=== PATIENT | female | born 1955 | race Caucasian/White ===

== ENCOUNTER 2016-05-12 21:27 | Inpatient (IN) ==
[2016-05-12 22:20] LABS: Prothrombin Time 10.8 Seconds (9.4-12.1)
[2016-05-12 22:23] LABS: Activated Partial Thrombo Time 29.5 Seconds (26.0-36.0)
[2016-05-12 22:27] LABS: Albumin 2.8 g/dL (3.5-5.0); Bilirubin,Direct 0.2 mg/dL (0.0-0.5); Bilirubin,Indirect 0.2 mg/dL (0.0-1.2); Bilirubin,Total 0.4 mg/dL (0.2-1.2); Calcium 10.5 mg/dL (8.6-10.8); Globulin 2.9 g/dL (2.4-3.5); Magnesium 2.1 mg/dL (1.6-2.6); Phosphorous 3.9 mg/dL (2.3-4.7); Potassium 5.9 mEq/L (3.5-4.5); Total Protein 5.7 g/dL (6.0-8.3)
[2016-05-12 22:30] LABS: Bilirubin,Urine Negative (Negative); Blood,Urine Moderate (Negative); Clarity,Urine Clear (Clear); Color,Urine Yellow (Yellow); Glucose,Urine (UA) Normal (Normal); Ketones,Urine Negative (Negative); Leukocyte Esterase,Urine Negative (Negative); Nitrite,Urine Negative (Negative); Protein,Urine Negative (Neg-Trace); Specific Gravity,Urine 1.018 (1.010-1.025); Urobilinogen,Urine Normal (Normal)
[2016-05-12 22:31] LABS: Bacteria,Urine None Seen per hpf (None-Few); Hyaline Casts,Urine Few per lpf (None-Few); Squamous Epithelial Cell,Urine Many per lpf (None-Few); WBC,Urine 0-3 per hpf (0-3)
[2016-05-12 22:37] LABS: Basophils % 0.2 %; Immature Granulocytes % 0.5 % (0-4)
[2016-05-12 22:39] LABS: Hemoglobin 8.7 g/dL (11.5-15.4); Immature Platelets 21.5 % (1.1-6.1); Lymphocytes # 0.3 K/mcL (0.6-4.6); Mean Corpuscular HGB Conc 32.2 g/dL (31.6-35.5); Mean Corpuscular Volume 99.3 fL (83.0-100.0); Mean Platelet Volume 13.3 fL (9.4-12.4); Monocytes # 0.1 K/mcL (0.0-1.3); Monocytes % 2.2 %; Nucleated Red Blood Cells 0.5 /100 WBC (0); Red Blood Count 2.72 M/mcL (3.82-4.97); Red Cell Distribution Width 15.4 % (11.5-14.5); Segmented Neutrophils % 92.1 %
[2016-05-12 22:51] LABS: Neutrophils # 5.3 K/mcL (1.6-8.9)
[2016-05-12 22:56] LABS: Platelet Count 28 K/mcL (140-400)
[2016-05-12 22:57] LABS: Platelet Estimate Decreased (Normal)
[2016-05-12] MEDS ORDERED: Vancomycin 1,000 MG in D5% in Water 250 ML IVPB ONE (23:00)
[2016-05-12] MEDS: 0.9 % Sodium Chloride 1,000 ML IVC SCH ×2 (23:05→23:38)
[2016-05-12] MEDS ORDERED: Piperacillin/Tazobactam 3.375 GM in D5% in Water (Mini-Bag+) 100 ML IVPB ONE (23:06)
[2016-05-12] MEDS ORDERED: Levofloxacin 750 MG/150 ML 750 MG/150 ML BAG IVPB ONE (23:06)
[2016-05-12 23:23] LABS: ABG Base Excess 8.5 mEq/L (-2.0 to 3.0); ABG HCO3 34.3 mEQ/L (21-27); ABG Oxygen Saturation 99 % (95-98); ABG PCO2 58 mmHg (35-45); ABG PH 7.38 pH Units (7.32-7.45); ABG PO2 146 mmHg (85-104); ABG TCO2 36.1 mEq/L (20-26); Blood Gas FiO2 36 %
[2016-05-12] MEDS ORDERED: Vancomycin (wt based) 1,000 MG VIAL IV SCH (23:45)
--- NOTE | 2016-05-12 23:46 | Emergency Department Note ---
Disposition Clinical Impression: Septic shock Sepsis Qualifiers: Sepsis type: sepsis due to unspecified organism Qualified Code(s): A41.9 - Sepsis, unspecified organism Aspiration pneumonia Qualifiers: Aspiration pneumonia type: unspecified Laterality: bilateral Lung location: unspecified part of lung Qualified Code(s): J69.0 - Pneumonitis due to inhalation of food and vomit Hypothermia Qualifiers: Encounter type: initial encounter Qualified Code(s): T68.XXXA - Hypothermia, initial encounter Disposition: Admitted As Inpatient Condition: Critical Time of Disposition: 00:02 Altered Mental Status HPI - General Chief Complaint: ED Altered Mental Status Stated Complaint: Hypotensive / AMS Time Seen by Provider: 05/12/16 21:31 Source: EMS Mode of arrival: EMS Limitations: altered mental status Nursing Notes Reviewed: Yes Vital Signs Reviewed: Yes - History of Present Illness MD complaint: altered mental status, decreased responsiveness Onset (ago): hour(s) Timing confirmed by: caregiver (Caregiver reports that the patient's has been a little weaker and less active over the past couple weeks but this morning was eating and talking in her usual manner but over just a few hours has decreased level of consciousness and decreased responsiveness.) Consistency of Symptoms: getting worse Context: history of similar presentation (A month ago she presented here with pneumonia and sepsis and according to the caregiver today was a similar pattern to that visit) - Related Data Home Medications Medication Instructions Recorded Confirmed Amlodipine Besylate 2.5 mg PO DAILY 01/28/16 05/12/16 Azelastine 0.1% Nasal [place] 2 spray NS HS 01/28/16 05/12/16 [Astelin] Betamethasone/Propylene Glyc 1 appl TP BID PRN 01/28/16 05/12/16 [Betamethasone Dp Aug 0.05% Lot] Calcium Carbonate/Vitamin D3 1 tab PO BID 01/28/16 05/12/16 [Calcium 500-Vit D3 400 Tablet] Divalproex (24 HR) [Depakote ER 500 mg PO QAM 01/28/16 05/12/16 (24 HR)] Levothyroxine Sodium 88 mcg PO DAILY 01/28/16 05/12/16 RisperiDONE [Risperdal] 3 mg PO DAILY 01/28/16 05/12/16 Sodium Chloride [Har[place]] 2 spray NS Q6H PRN 01/28/16 05/12/16 Acetaminophen [Tylenol] 500 mg PO Q4H PRN 04/05/16 05/12/16 Benztropine Mesylate 1 mg PO BID 04/05/16 05/12/16 Cholecalciferol (Vitamin D3) 1,000 unit PO BID 04/05/16 05/12/16 [Vitamin D3] Cilostazol 100 mg PO BID 04/05/16 05/12/16 Fluvoxamine [Luvox] 200 mg PO QAM 04/05/16 05/12/16 LORazepam [Ativan] 0.5 mg PO BID 04/05/16 05/12/16 Tetrahydrozoline HCl [Visine] 1 drop OP Q4HR PRN 04/05/16 05/12/16 Divalproex (24 HR) [Depakote ER 1,000 mg PO HS 05/12/16 05/12/16 (24 HR)] Previous Rx's Medication Instructions Recorded Aspirin 325 mg PO DAILY #30 tablet 06/11/15 Docusate Sodium [Colace] 100 mg PO BID PRN #60 capsule 06/11/15 Loratadine [Claritin] 10 mg PO DAILY #30 tablet 06/11/15 Allergies Allergy/AdvReac Type Severity Reaction Status Date / Time No Known Allergies Allergy Verified 04/02/16 09:18 Limitations: ROS unobtainable due to patients medical condition Constitutional: Denies: fever Respiratory: Reports: cough Gastrointestinal: Denies: vomiting, diarrhea Past Medical History - Past Medical History Attestation: Yes The following information was validated with the patient. 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 Absent: meningismus - Chest Chest inspection: Present: symmetric chest wall rise. Absent: tenderness - Respiratory Respiratory exam: Present: wheezes. Absent: stridor - Cardiovascular Cardiovascular exam: Present: normal rhythm, bradycardia, normal heart sounds - Abdominal Exam Abdominal exam: Present: soft, Non-Tender - Extremities Exam Extremities exam: Absent: pedal edema - Skin Skin exam: Absent: rash Course Course Narrative: Patient arrives with altered mental status which is somewhat abrupt deterioration over the last several hours. She has been weak and not eating as well over the past 2 weeks but today was an abrupt decline. On my examination I find the patient lying in the bed and able to open her eyes and look at you and mumble when you talk to her loudly while stimulating her, but she drifts back off when you stop stimulating her. I hear a frequent cough that sounds very wet. Workup shows a lot of laboratory abnormalities but they are not far off recent values. She seems to have a pancytopenia which has been developing over the past several weeks injection as an appointment with hematology coming up here soon. Renal functions are consistent with baseline. Potassium is 5.9 but EKG is identical to previous EKGs. No sign of infection in the urine. CAT scan of the brain does not show any bleed or acute abnormality and shows no evidence of old stroke. Chest x-ray shows haziness which could be an atypical pneumonia or an aspiration pneumonia. Temperature on arrival was 88. I think this represents a sepsis presentation. We had 20-gauge IV in each arm by did not feel that this was adequate so I had to put a central line in. After 2 L of saline the patient's blood pressures only come up about 10 points. Wear running the third liter in now and will be starting Levophed. Patient is going to need to be admitted to the ICU. - Reevaluation(s) Reevaluation #1: Getting ready to transport patient to ICU but O2 sat started going down significantly. Patient is now starting to sound wet. Although there are no other clinical indications of congestive heart failure we have to be concerned that there may be some fluid overload at this point. We required nonrebreather just to get her sats in the upper 80s. I went ahead and intubated the patient. O2 sats are good at this point. We will evaluate the chest x-ray and make appropriate treatment changes. We will need to get this patient over to the ICU for Artline and more detailed monitoring. Patient is continuing to make good urine. Time: 00:42 Reevaluation #2: Postintubation chest x-ray showed the tube was too far down. I asked respiratory to back it out 3 cm. Time: 00:50 - Consultations Consultation #1: I discussed the case with the hospitalist, . We discussed the presentation of the patient and current lab results and critical nature of the case. His cussed ER management up to this point and the need for transfer to ICU. Patient was accepted by the hospitalist for the ICU. Time: 00:12 Vital Signs Temperature 88.1 F L 05/12/16 21:35 Pulse Rate 51 05/12/16 21:35 Respiratory Rate 18 05/12/16 21:35 Blood Pressure 152/68 05/12/16 21:35 O2 Sat by Pulse Oximetry 98 05/12/16 21:35 Temperature 90.0 F L 05/12/16 23:22 Pulse Rate 57 05/12/16 23:59 Respiratory Rate 20 05/13/16 00:44 Blood Pressure 67/34 05/13/16 00:44 O2 Sat by Pulse Oximetry 98 05/12/16 23:59 Oxygen Delivery Oxygen Delivery Ambu Bag Procedures - Central Line Placement Right Femoral Central Line Inserted*: Yes Central Line Insertion: emergent During the Procedure: clinician is wearing sterile gloves, cap, mask,& gown during insertion, sterile field and sterile technique are maintained, patient's face is covered with drape or mask and wearing a cap, everyone in room is wearing a mask Prep the Procedure Site: apply chloraprep to the skin using a back and forth scrubbing motion, apply chloraprep for 30 seconds (upper body), 1-2 min ( femoral sites), allow prep to dry, drape the patient with a full body drape Local Anesthetic: lidocaine 1% Ultrasound Used for Placement: Yes Central Line Lumen Inserted: triple Post Procedure: sutured in place, good blood return, all ports aspirated, flushed, capped, sterile dressing applied, guide wire removed and visualized, dressing is dated Patient Tolerated Procedure: well, no complications Name of Clinician Inserting Central Line: [place] - Intubation Time out performed: Yes sedative: Etomidate paralytic: Rocuronium (After the patient was successfully intubated) Laryngoscope: Nai ET Tube Size: Oral ET Tube Uncuffed: Yes Tube Secured Depth (cm): 22 Tube Placement Confirmation: visualized tube passing through cords, equal breath sounds bilaterally, confirmation by capnometry Patient Tolerated Procedure: well, no complications Intubation Complications: none Altered Mental Status - Medical Records Medical records reviewed: Yes I reviewed the patient's medical records. - Lab Data Lab results reviewed: Yes I reviewed the patient's lab results. Result diagrams: 05/12/16 22:29 05/12/16 22:00 Lab Results 05/12/16 05/12/16 05/12/16 Range/Units 22:00 22:00 22:20 WBC (4.3-11.1) K/mcL RBC (3.82-4.97) M/mcL Hgb (11.5-15.4) g/dL Hct (35.3-44.9) % MCV (83.0-100.0) fL MCH (28.0-33.3) pg MCHC (31.6-35.5) g/dL RDW (11.5-14.5) % Plt Count (140-400) K/mcL MPV (9.4-12.4) fL Immature Gran % (0-4) % Seg Neutrophils % % Lymphocytes % % Monocytes % % Eosinophils % % Basophils % % Neutrophils # (1.6-8.9) K/mcL Lymphocytes # (0.6-4.6) K/mcL Monocytes # (0.0-1.3) K/mcL Eosinophils # (0.0-0.6) K/mcL Basophils # (0.0-0.2) K/mcL Nucleated RBCs/100 WBC (0) /100 WBC Platelet Estimate (Normal) Immature Plt Fraction (1.1-6.1) % PT 10.8 (9.4-12.1) Seconds INR 1.0 APTT 29.5 (26.0-36.0) Seconds ABG pH (7.32-7.45) pH Units ABG pCO2 (35-45) mmHg ABG pO2 (85-104) mmHg ABG HCO3 (21-27) mEQ/L ABG Total CO2 (20-26) mEq/L ABG O2 Saturation (95-98) % ABG Base Excess (-2.0 to 3.0) mEq/L Blood Gas Modality Inspired O2 % Sodium 147 H (136-145) mEq/L Potassium 5.9 H (3.5-4.5) mEq/L Chloride 114 H (98-109) mEq/L Carbon Dioxide 26 (19-29) mEq/L BUN 38 H (7-20) mg/dL Creatinine 1.68 H (0.57-1.11) mg/dL Est GFR ( Amer) 38 L (> 60) Est GFR (Non-Af Amer) 31 L (> 60) BUN/Creatinine Ratio 23 (6-26) Glucose 74 (70-99) mg/dL Calculated Osmolality 312 H (280-300) Lactic Acid (0.5-2.2) mmol/L Calcium 10.5 (8.6-10.8) mg/dL Phosphorus 3.9 (2.3-4.7) mg/dL Magnesium 2.1 (1.6-2.6) mg/dL Total Bilirubin 0.4 (0.2-1.2) mg/dL Direct Bilirubin 0.2 (0.0-0.5) mg/dL Indirect Bilirubin 0.2 (0.0-1.2) mg/dL AST 55 H (5-34) Units/L ALT 42 (0-55) Units/L Alkaline Phosphatase 89 (38-126) Units/L Troponin I (0-0.03) ng/mL Serum Total Protein 5.7 L (6.0-8.3) g/dL Albumin 2.8 L (3.5-5.0) g/dL Globulin 2.9 (2.4-3.5) g/dL Albumin/Globulin Ratio 1.0 L (1.1-2.2) Urine Color Yellow (Yellow) Urine Clarity Clear (Clear) Urine pH 6.0 (5.0-8.0) pH Units Ur Specific [place] 1.018 (1.010-1.025) Urine Protein Negative (Neg-Trace) mg/dL Urine Glucose (UA) Normal (Normal) mg/dL Urine Ketones Negative (Negative) mg/dL Urine Blood Moderate H (Negative) Urine Nitrite Negative (Negative) Urine Bilirubin Negative (Negative) Urine Urobilinogen Normal (Normal) mg/dL Ur Leukocyte Esterase Negative (Negative) Urine Microscopic RBC 5-15 H (0-3) per hpf Urine Microscopic WBC 0-3 (0-3) per hpf Ur Squamous Epith Cells Many H (None-Few) per lpf Urine Bacteria None Seen (None-Few) per hpf Hyaline Casts Few (None-Few) per lpf Ur Culture Indicated? NO (NO) 05/12/16 05/12/16 05/12/16 Range/Units 22:29 22:29 22:29 WBC 5.8 D (4.3-11.1) K/mcL RBC 2.72 L (3.82-4.97) M/mcL Hgb 8.7 L (11.5-15.4) g/dL Hct 27.0 L (35.3-44.9) % MCV 99.3 (83.0-100.0) fL MCH 32.0 (28.0-33.3) pg MCHC 32.2 (31.6-35.5) g/dL RDW 15.4 H (11.5-14.5) % Plt Count 28 L* (140-400) K/mcL MPV 13.3 H (9.4-12.4) fL Immature Gran % 0.5 (0-4) % Seg Neutrophils % 92.1 % Lymphocytes % 5.0 % Monocytes % 2.2 % Eosinophils % 0.0 % Basophils % 0.2 % Neutrophils # 5.3 (1.6-8.9) K/mcL Lymphocytes # 0.3 L (0.6-4.6) K/mcL Monocytes # 0.1 (0.0-1.3) K/mcL Eosinophils # 0.0 (0.0-0.6) K/mcL Basophils # 0.0 (0.0-0.2) K/mcL Nucleated RBCs/100 WBC 0.5 H (0) /100 WBC Platelet Estimate Decreased L (Normal) Immature Plt Fraction 21.5 H (1.1-6.1) % PT (9.4-12.1) Seconds INR APTT (26.0-36.0) Seconds ABG pH (7.32-7.45) pH Units ABG pCO2 (35-45) mmHg ABG pO2 (85-104) mmHg ABG HCO3 (21-27) mEQ/L ABG Total CO2 (20-26) mEq/L ABG O2 Saturation (95-98) % ABG Base Excess (-2.0 to 3.0) mEq/L Blood Gas Modality Inspired O2 % Sodium (136-145) mEq/L Potassium (3.5-4.5) mEq/L Chloride (98-109) mEq/L Carbon Dioxide (19-29) mEq/L BUN (7-20) mg/dL Creatinine (0.57-1.11) mg/dL Est GFR ( Amer) (> 60) Est GFR (Non-Af Amer) (> 60) BUN/Creatinine Ratio (6-26) Glucose (70-99) mg/dL Calculated Osmolality (280-300) Lactic Acid 1.7 (0.5-2.2) mmol/L Calcium (8.6-10.8) mg/dL Phosphorus (2.3-4.7) mg/dL Magnesium (1.6-2.6) mg/dL Total Bilirubin (0.2-1.2) mg/dL Direct Bilirubin (0.0-0.5) mg/dL Indirect Bilirubin (0.0-1.2) mg/dL AST (5-34) Units/L ALT (0-55) Units/L Alkaline Phosphatase (38-126) Units/L Troponin I 0.01 (0-0.03) ng/mL Serum Total Protein (6.0-8.3) g/dL Albumin (3.5-5.0) g/dL Globulin (2.4-3.5) g/dL Albumin/Globulin Ratio (1.1-2.2) Urine Color (Yellow) Urine Clarity (Clear) Urine pH (5.0-8.0) pH Units Ur Specific [place] (1.010-1.025) Urine Protein (Neg-Trace) mg/dL Urine Glucose (UA) (Normal) mg/dL Urine Ketones (Negative) mg/dL Urine Blood (Negative) Urine Nitrite (Negative) Urine Bilirubin (Negative) Urine Urobilinogen (Normal) mg/dL Ur Leukocyte Esterase (Negative) Urine Microscopic RBC (0-3) per hpf Urine Microscopic WBC (0-3) per hpf Ur Squamous Epith Cells (None-Few) per lpf Urine Bacteria (None-Few) per hpf Hyaline Casts (None-Few) per lpf Ur Culture Indicated? (NO) 05/12/16 Range/Units 23:13 WBC (4.3-11.1) K/mcL RBC (3.82-4.97) M/mcL Hgb (11.5-15.4) g/dL Hct (35.3-44.9) % MCV (83.0-100.0) fL MCH (28.0-33.3) pg MCHC (31.6-35.5) g/dL RDW (11.5-14.5) % Plt Count (140-400) K/mcL MPV (9.4-12.4) fL Immature Gran % (0-4) % Seg Neutrophils % % Lymphocytes % % Monocytes % % Eosinophils % % Basophils % % Neutrophils # (1.6-8.9) K/mcL Lymphocytes # (0.6-4.6) K/mcL Monocytes # (0.0-1.3) K/mcL Eosinophils # (0.0-0.6) K/mcL Basophils # (0.0-0.2) K/mcL Nucleated RBCs/100 WBC (0) /100 WBC Platelet Estimate (Normal) Immature Plt Fraction (1.1-6.1) % PT (9.4-12.1) Seconds INR APTT (26.0-36.0) Seconds ABG pH 7.38 (7.32-7.45) pH Units ABG pCO2 58 H (35-45) mmHg ABG pO2 146 H (85-104) mmHg ABG HCO3 34.3 H (21-27) mEQ/L ABG Total CO2 36.1 H (20-26) mEq/L ABG O2 Saturation 99 H (95-98) % ABG Base Excess 8.5 H (-2.0 to 3.0) mEq/L Blood Gas Modality [place] Inspired O2 36 % Sodium (136-145) mEq/L Potassium (3.5-4.5) mEq/L Chloride (98-109) mEq/L Carbon Dioxide (19-29) mEq/L BUN (7-20) mg/dL Creatinine (0.57-1.11) mg/dL Est GFR ( Amer) (> 60) Est GFR (Non-Af Amer) (> 60) BUN/Creatinine Ratio (6-26) Glucose (70-99) mg/dL Calculated Osmolality (280-300) Lactic Acid (0.5-2.2) mmol/L Calcium (8.6-10.8) mg/dL Phosphorus (2.3-4.7) mg/dL Magnesium (1.6-2.6) mg/dL Total Bilirubin (0.2-1.2) mg/dL Direct Bilirubin (0.0-0.5) mg/dL Indirect Bilirubin (0.0-1.2) mg/dL AST (5-34) Units/L ALT (0-55) Units/L Alkaline Phosphatase (38-126) Units/L Troponin I (0-0.03) ng/mL Serum Total Protein (6.0-8.3) g/dL Albumin (3.5-5.0) g/dL Globulin (2.4-3.5) g/dL Albumin/Globulin Ratio (1.1-2.2) Urine Color (Yellow) Urine Clarity (Clear) Urine pH (5.0-8.0) pH Units Ur Specific [place] (1.010-1.025) Urine Protein (Neg-Trace) mg/dL Urine Glucose (UA) (Normal) mg/dL Urine Ketones (Negative) mg/dL Urine Blood (Negative) Urine Nitrite (Negative) Urine Bilirubin (Negative) Urine Urobilinogen (Normal) mg/dL Ur Leukocyte Esterase (Negative) Urine Microscopic RBC (0-3) per hpf Urine Microscopic WBC (0-3) per hpf Ur Squamous Epith Cells (None-Few) per lpf Urine Bacteria (None-Few) per hpf Hyaline Casts (None-Few) per lpf Ur Culture Indicated? (NO) - Radiology Data Radiology results reviewed: Yes I reviewed the patient's radiology results. - EKG Data EKG attestation: Yes I reviewed and interpreted this EKG. EKG shows normal: sinus rhythm, axis, intervals, QRS complexes, ST-T waves Rate: bradycardia Interpretation: unchanged when compared to prior tracing (date) (04/08/2016) TPA Checklist - LKW: 3-4.5 hrs Add. Contraindications Patient/family understanding: The patient/family members have been counseled and understood the risk, benefit , and alternatives of treatment. Critical Care Time Critical Care Time: Yes Total Critical Care Time: 120 Attestation: High likelihood of life-threatening deterioration requiring my urgent evaluation and intervention. Patient was hypothermic and hypotensive and presenting in septic shock. Aggressive management was initiated. I spent time reassessing the patient, evaluating the lab results, discussing case with the admitting physician.
[2016-05-13] MEDS ORDERED: Norepinephrine 4 MG in D5% in Water 250 ML IV SCH (00:15)
[2016-05-13] MEDS ORDERED: Sodium Bicarbonate 75 MEQ in 0.45 % Sodium Chloride 1,000 ML IVC SCH ×2 (01:45→02:10)
[2016-05-13] MEDS ORDERED: Naloxone 0.4 MG/ML INJ IVP PRN (01:50)
[2016-05-13] MEDS ORDERED: Ondansetron 4 MG/2 ML VIAL IVP PRN (01:50)
--- NOTE | 2016-05-13 02:17 | Internal Med History&Physical ---
Date of Encounter: 05/13/16 Time of Encounter: 01:50 Internal Medicine - H&P: HPI Chief complaint: ALTERED MENTAL STATUS History of present illness: Ms. Lane is a 60 year old female resident of a long-term, with medical history significant for mental handicap, chronic pancytopenia, was brought to hospital by [facility] personnel due to altered mental status with rather abrupt onset and progression. Patient was already intubated at the time I examined her, hence I could not obtain direct history. As per ED notes, she had not been eating well over the past couple of weeks. The patient arrived with altered mental status which was reported as somewhat abrupt deterioration over the several hours. I am informed she was admitted for pneumonia in 03/2016. In the ED, she was tachypneic, with impending respiratory, she was also hypotensive requiring ET intubation, central line placement and pressors. The patient was hypothermic and hypotensive and presenting in septic shock. Aggressive management was initiated. No other history is available. I am unable to obtain ROS. I am unable to obtain a code status, Angel Luis Edmonds, her guardian ([phone] ) is listed as her emergency contact on the [facility]. No indication of her NOK/ POA. 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 history, endometriosis Smoking Status: Never smoker Smokeless Tobacco Status: No Alcohol use: Reports: none Drug use: Reports: none Family history: Unable to obtain ROS: I am unable to obtain ROS Vital Signs Temperature 88.1 F L 05/12/16 21:35 Pulse Rate 51 05/12/16 21:35 Respiratory Rate 18 05/12/16 21:35 Blood Pressure 152/68 05/12/16 21:35 O2 Sat by Pulse Oximetry 98 05/12/16 21:35 Temperature 90.0 F L 05/12/16 23:22 Pulse Rate 57 05/12/16 23:59 Respiratory Rate 20 05/13/16 00:44 Blood Pressure 67/34 05/13/16 00:44 O2 Sat by Pulse Oximetry 98 05/12/16 23:59 O/E: intubated, on a vent, not pale, anicteric, afebrile,acyanotic, HEENT: Trachea is central, no cervical or jugular lymphadenopathy Chest: ventilator generated breath sounds Heart:rrr, bradycardia (58), hs1/2 Abdomen: non-distended,soft, ,,no masses. 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 Psychaitry: Unable to assess Extremities: no pedal normal pedal pulses, no calf tenderness SKIN: No active skin lesion Lab Results 05/12/16 05/12/16 05/12/16 Range/Units 22:00 22:00 22:20 WBC (4.3-11.1) K/mcL RBC (3.82-4.97) M/mcL Hgb (11.5-15.4) g/dL Hct (35.3-44.9) % MCV (83.0-100.0) fL MCH (28.0-33.3) pg MCHC (31.6-35.5) g/dL RDW (11.5-14.5) % Plt Count (140-400) K/mcL MPV (9.4-12.4) fL Immature Gran % (0-4) % Seg Neutrophils % % Lymphocytes % % Monocytes % % Eosinophils % % Basophils % % Neutrophils # (1.6-8.9) K/mcL Lymphocytes # (0.6-4.6) K/mcL Monocytes # (0.0-1.3) K/mcL Eosinophils # (0.0-0.6) K/mcL Basophils # (0.0-0.2) K/mcL Nucleated RBCs/100 WBC (0) /100 WBC Platelet Estimate (Normal) Immature Plt Fraction (1.1-6.1) % PT 10.8 (9.4-12.1) Seconds INR 1.0 APTT 29.5 (26.0-36.0) Seconds ABG pH (7.32-7.45) pH Units ABG pCO2 (35-45) mmHg ABG pO2 (85-104) mmHg ABG HCO3 (21-27) mEQ/L ABG Total CO2 (20-26) mEq/L ABG O2 Saturation (95-98) % ABG Base Excess (-2.0 to 3.0) mEq/L Blood Gas Modality Inspired O2 % Sodium 147 H (136-145) mEq/L Potassium 5.9 H (3.5-4.5) mEq/L Chloride 114 H (98-109) mEq/L Carbon Dioxide 26 (19-29) mEq/L BUN 38 H (7-20) mg/dL Creatinine 1.68 H (0.57-1.11) mg/dL Est GFR ( Amer) 38 L (> 60) Est GFR (Non-Af Amer) 31 L (> 60) BUN/Creatinine Ratio 23 (6-26) Glucose 74 (70-99) mg/dL Calculated Osmolality 312 H (280-300) Lactic Acid (0.5-2.2) mmol/L Calcium 10.5 (8.6-10.8) mg/dL Phosphorus 3.9 (2.3-4.7) mg/dL Magnesium 2.1 (1.6-2.6) mg/dL Total Bilirubin 0.4 (0.2-1.2) mg/dL Direct Bilirubin 0.2 (0.0-0.5) mg/dL Indirect Bilirubin 0.2 (0.0-1.2) mg/dL AST 55 H (5-34) Units/L ALT 42 (0-55) Units/L Alkaline Phosphatase 89 (38-126) Units/L Troponin I (0-0.03) ng/mL Serum Total Protein 5.7 L (6.0-8.3) g/dL Albumin 2.8 L (3.5-5.0) g/dL Globulin 2.9 (2.4-3.5) g/dL Albumin/Globulin Ratio 1.0 L (1.1-2.2) Urine Color Yellow (Yellow) Urine Clarity Clear (Clear) Urine pH 6.0 (5.0-8.0) pH Units Ur Specific [place] 1.018 (1.010-1.025) Urine Protein Negative (Neg-Trace) mg/dL Urine Glucose (UA) Normal (Normal) mg/dL Urine Ketones Negative (Negative) mg/dL Urine Blood Moderate H (Negative) Urine Nitrite Negative (Negative) Urine Bilirubin Negative (Negative) Urine Urobilinogen Normal (Normal) mg/dL Ur Leukocyte Esterase Negative (Negative) Urine Microscopic RBC 5-15 H (0-3) per hpf Urine Microscopic WBC 0-3 (0-3) per hpf Ur Squamous Epith Cells Many H (None-Few) per lpf Urine Bacteria None Seen (None-Few) per hpf Hyaline Casts Few (None-Few) per lpf Ur Culture Indicated? NO (NO) 05/12/16 05/12/16 05/12/16 Range/Units 22:29 22:29 22:29 WBC 5.8 D (4.3-11.1) K/mcL RBC 2.72 L (3.82-4.97) M/mcL Hgb 8.7 L (11.5-15.4) g/dL Hct 27.0 L (35.3-44.9) % MCV 99.3 (83.0-100.0) fL MCH 32.0 (28.0-33.3) pg MCHC 32.2 (31.6-35.5) g/dL RDW 15.4 H (11.5-14.5) % Plt Count 28 L* (140-400) K/mcL MPV 13.3 H (9.4-12.4) fL Immature Gran % 0.5 (0-4) % Seg Neutrophils % 92.1 % Lymphocytes % 5.0 % Monocytes % 2.2 % Eosinophils % 0.0 % Basophils % 0.2 % Neutrophils # 5.3 (1.6-8.9) K/mcL Lymphocytes # 0.3 L (0.6-4.6) K/mcL Monocytes # 0.1 (0.0-1.3) K/mcL Eosinophils # 0.0 (0.0-0.6) K/mcL Basophils # 0.0 (0.0-0.2) K/mcL Nucleated RBCs/100 WBC 0.5 H (0) /100 WBC Platelet Estimate Decreased L (Normal) Immature Plt Fraction 21.5 H (1.1-6.1) % PT (9.4-12.1) Seconds INR APTT (26.0-36.0) Seconds ABG pH (7.32-7.45) pH Units ABG pCO2 (35-45) mmHg ABG pO2 (85-104) mmHg ABG HCO3 (21-27) mEQ/L ABG Total CO2 (20-26) mEq/L ABG O2 Saturation (95-98) % ABG Base Excess (-2.0 to 3.0) mEq/L Blood Gas Modality Inspired O2 % Sodium (136-145) mEq/L Potassium (3.5-4.5) mEq/L Chloride (98-109) mEq/L Carbon Dioxide (19-29) mEq/L BUN (7-20) mg/dL Creatinine (0.57-1.11) mg/dL Est GFR ( Amer) (> 60) Est GFR (Non-Af Amer) (> 60) BUN/Creatinine Ratio (6-26) Glucose (70-99) mg/dL Calculated Osmolality (280-300) Lactic Acid 1.7 (0.5-2.2) mmol/L Calcium (8.6-10.8) mg/dL Phosphorus (2.3-4.7) mg/dL Magnesium (1.6-2.6) mg/dL Total Bilirubin (0.2-1.2) mg/dL Direct Bilirubin (0.0-0.5) mg/dL Indirect Bilirubin (0.0-1.2) mg/dL AST (5-34) Units/L ALT (0-55) Units/L Alkaline Phosphatase (38-126) Units/L Troponin I 0.01 (0-0.03) ng/mL Serum Total Protein (6.0-8.3) g/dL Albumin (3.5-5.0) g/dL Globulin (2.4-3.5) g/dL Albumin/Globulin Ratio (1.1-2.2) Urine Color (Yellow) Urine Clarity (Clear) Urine pH (5.0-8.0) pH Units Ur Specific [place] (1.010-1.025) Urine Protein (Neg-Trace) mg/dL Urine Glucose (UA) (Normal) mg/dL Urine Ketones (Negative) mg/dL Urine Blood (Negative) Urine Nitrite (Negative) Urine Bilirubin (Negative) Urine Urobilinogen (Normal) mg/dL Ur Leukocyte Esterase (Negative) Urine Microscopic RBC (0-3) per hpf Urine Microscopic WBC (0-3) per hpf Ur Squamous Epith Cells (None-Few) per lpf Urine Bacteria (None-Few) per hpf Hyaline Casts (None-Few) per lpf Ur Culture Indicated? (NO) 05/12/16 Range/Units 23:13 WBC (4.3-11.1) K/mcL RBC (3.82-4.97) M/mcL Hgb (11.5-15.4) g/dL Hct (35.3-44.9) % MCV (83.0-100.0) fL MCH (28.0-33.3) pg MCHC (31.6-35.5) g/dL RDW (11.5-14.5) % Plt Count (140-400) K/mcL MPV (9.4-12.4) fL Immature Gran % (0-4) % Seg Neutrophils % % Lymphocytes % % Monocytes % % Eosinophils % % Basophils % % Neutrophils # (1.6-8.9) K/mcL Lymphocytes # (0.6-4.6) K/mcL Monocytes # (0.0-1.3) K/mcL Eosinophils # (0.0-0.6) K/mcL Basophils # (0.0-0.2) K/mcL Nucleated RBCs/100 WBC (0) /100 WBC Platelet Estimate (Normal) Immature Plt Fraction (1.1-6.1) % PT (9.4-12.1) Seconds INR APTT (26.0-36.0) Seconds ABG pH 7.38 (7.32-7.45) pH Units ABG pCO2 58 H (35-45) mmHg ABG pO2 146 H (85-104) mmHg ABG HCO3 34.3 H (21-27) mEQ/L ABG Total CO2 36.1 H (20-26) mEq/L ABG O2 Saturation 99 H (95-98) % ABG Base Excess 8.5 H (-2.0 to 3.0) mEq/L Blood Gas Modality [place] Inspired O2 36 % Sodium (136-145) mEq/L Potassium (3.5-4.5) mEq/L Chloride (98-109) mEq/L Carbon Dioxide (19-29) mEq/L BUN (7-20) mg/dL Creatinine (0.57-1.11) mg/dL Est GFR ( Amer) (> 60) Est GFR (Non-Af Amer) (> 60) BUN/Creatinine Ratio (6-26) Glucose (70-99) mg/dL Calculated Osmolality (280-300) Lactic Acid (0.5-2.2) mmol/L Calcium (8.6-10.8) mg/dL Phosphorus (2.3-4.7) mg/dL Magnesium (1.6-2.6) mg/dL Total Bilirubin (0.2-1.2) mg/dL Direct Bilirubin (0.0-0.5) mg/dL Indirect Bilirubin (0.0-1.2) mg/dL AST (5-34) Units/L ALT (0-55) Units/L Alkaline Phosphatase (38-126) Units/L Troponin I (0-0.03) ng/mL Serum Total Protein (6.0-8.3) g/dL Albumin (3.5-5.0) g/dL Globulin (2.4-3.5) g/dL Albumin/Globulin Ratio (1.1-2.2) Urine Color (Yellow) Urine Clarity (Clear) Urine pH (5.0-8.0) pH Units Ur Specific [place] (1.010-1.025) Urine Protein (Neg-Trace) mg/dL Urine Glucose (UA) (Normal) mg/dL Urine Ketones (Negative) mg/dL Urine Blood (Negative) Urine Nitrite (Negative) Urine Bilirubin (Negative) Urine Urobilinogen (Normal) mg/dL Ur Leukocyte Esterase (Negative) Urine Microscopic RBC (0-3) per hpf Urine Microscopic WBC (0-3) per hpf Ur Squamous Epith Cells (None-Few) per lpf Urine Bacteria (None-Few) per hpf Hyaline Casts (None-Few) per lpf Ur Culture Indicated? (NO) EKG: normal sinus rhythm, bradycardia, similar to EKG of 04/08/2016 IMP Altered mental status, likely related to hypoxia/hypercapnea. Acute hypercapneic respiratory failure Multifocal pneumona Acute on CKD Chronic pancytopenia, severe thrombocytopenia Chronic morbidities Chronic pancytopenia COPD DM2 GERD HLD HTN Osteoporosis Dementia, ? Alzhemier's CKDIII PLAN Admit IVF Zosyn, Vancomycin and Levaqiun Versed for sedation, Levophed for pressor effect. f/u culture Protonix 40 mg IV QD for GI prophylaxis. TEDs for DVT Place NG tube, continue essential medications of chronic morbidities via apporpraite routes as indicated. I am unable to discuss my assessment with the patient due to his status, she is intubated. The is is high risk as she is in a life-threatening situation requiring respiratory and circulatory support, emergent evaluation and intervention. Past Med Surg Social Fam HX - Past Medical History Medical history: arthritis, cancer, COPD, dementia, diabetes, GERD, hyperlipidemia, hypertension, kidney stones, malignancy, osteoporosis, renal disease, seizures, thyroid disease, other Psychiatric history: anxiety, bipolar, schizophrenia, previous psychiatric hospitalization, other - Past Surgical History Surgical History: cancer surgery, cholecystectomy, hysterectomy, STACIE/BSO, other - Social History Smoking Status: Never smoker Smokeless Tobacco Status: No Alcohol use: none Drug use: none Internal Medicine - H&P: Meds Docusate Sodium [Colace] 100 mg PO BID PRN #60 capsule 06/11/15 [Rx] Loratadine [Claritin] 10 mg PO DAILY #30 tablet 06/11/15 [Rx] Azelastine 0.1% Nasal [place] [Astelin] 2 spray NS HS 01/28/16 [History] Betamethasone/Propylene Glyc [Betamethasone Dp Aug 0.05% Lot] 1 appl TP BID PRN 01/28/16 [History] Levothyroxine Sodium 88 mcg PO DAILY 01/28/16 [History] RisperiDONE [Risperdal] 3 mg PO DAILY 01/28/16 [History] Sodium Chloride [[place]] 2 spray NS Q6H PRN 01/28/16 [History] Acetaminophen [Tylenol] 500 mg PO Q4H PRN 04/05/16 [History] Benztropine Mesylate 1 mg PO BID 04/05/16 [History] Fluvoxamine [Luvox] 200 mg PO QAM 04/05/16 [History] Tetrahydrozoline HCl [Visine] 1 drop OP Q4HR PRN 04/05/16 [History] Atropine 1% Opth Drops 4 drop SL Q1-2H PRN #1 bottle 05/16/16 [Rx] Haloperidol Oral Conc [Haldol] 2 mg PO Q6H PRN #30 mls 05/16/16 [Rx] LORazepam Oral Conc [Ativan Oral Conc] 1 mg PO Q4H PRN #30 mls 05/16/16 [Rx] LevETIRAcetam [Keppra Oral Soln] 750 mg PO BID 28 Days 05/16/16 [Rx] Morphine Oral CONC [Roxanol] 2.5 - 5 mg PO Q4HR PRN #30 oral.syg 05/16/16 [Rx] Allergies No Known Allergies Allergy (Verified 04/02/16 09:18) All Systems PM: A 10-system review of systems was performed and is negative for pertinent findings except as documented above in the HPI. - Constitutional Vitals: Temp Pulse Resp BP Pulse Ox 91.6 F L 72 16 84/42 100 05/13/16 01:05 05/13/16 01:05 05/13/16 01:05 05/13/16 01:05 05/13/16 01:05 Internal Med - H&P Results - Labs CBC & Chem 7: 05/15/16 05:55 05/15/16 04:07 - Impressions ITS Impressions Chest X-Ray 05/13/16 00:42 IMPRESSION: 1. Endotracheal tube terminating in the right mainstem bronchus should be retracted 2.5 cm. Critical results were called by Dr. Merrill Eddy MD to Dr. Jonas On 05/13/2016 at 01:36. D/ / Merrill Eddy MD / Merrill Eddy MD Interpreting Provider: Merrill Eddy MD
[2016-05-13] MEDS ORDERED: Norepinephrine 8 MG in D5% in Water 500 ML IV SCH (04:00)
[2016-05-13] MEDS ORDERED: Phenylephrine 10 MG in D5% in Water 250 ML IVC STA (05:04)
[2016-05-13] MEDS: Pantoprazole 40 MG VIAL IVP SCH ×2 (05:53→16:51)
[2016-05-13] MEDS ORDERED: Aminoglycoside Consult 1 EACH MC ONE (07:44)
[2016-05-13] MEDS ORDERED: *HR* Etomidate 40 MG/20 ML VIAL IVP ONE (08:06)
[2016-05-13] MEDS ORDERED: *HR* Rocuronium Bromide 50 MG/5 ML VIAL IVC ONE (08:06)
[2016-05-13] MEDS: FentaNYL (PF) 1,000 MCG in 0.9 % Sodium Chloride 80 ML IVC SCH (09:14)
[2016-05-13] MEDS: Vasopressin 20 UNIT in 0.9 % Sodium Chloride 50 ML IVC SCH ×2 (09:15→15:25)
[2016-05-13] MEDS: Norepinephrine 8 MG in D5% in Water 500 ML IV SCH ×3 (09:18→22:51)
[2016-05-13] MEDS: Piperacillin/Tazobactam 3.375 GM in D5% in Water (Mini-Bag+) 100 ML IVPB SCH ×2 (09:24→16:51)
[2016-05-13] MEDS ORDERED: Lacri-Lube 3.5 GM TUBE BOTH EYES PRN (10:54)
[2016-05-13 11:22] LABS: Mean Corpuscular Volume 96.6 fL (83.0-100.0); Red Cell Distribution Width 15.6 % (11.5-14.5)
[2016-05-13 11:23] LABS: Hematocrit 25.5 % (35.3-44.9); Hemoglobin 8.3 g/dL (11.5-15.4); Immature Platelets 17.2 % (1.1-6.1); Mean Corpuscular HGB Conc 32.5 g/dL (31.6-35.5); Mean Corpuscular Hemoglobin 31.4 pg (28.0-33.3); Mean Platelet Volume 13.3 fL (9.4-12.4); Nucleated Red Blood Cells 0.5 /100 WBC (0); Red Blood Count 2.64 M/mcL (3.82-4.97)
--- NOTE | 2016-05-13 11:23 | Pulmonology Consult Note ---
Date of Encounter: 05/13/16 Time of Encounter: 11:21 Assessment and Plan (1) Acute respiratory failure with hypoxia and hypercapnia Current Visit: Yes Status: Acute Respiratory failure likely secondary to pneumonia and pulmonary edema. Continue with breathing treatments, steroids, and antibiotics to cover for HCAP. Ventilator set at PEEP 5, FiO2 of 50%. Continue titrating down. (2) Septic shock Current Visit: Yes Status: Acute Patient had tachycardia, tachypnea, renal failure, and hypotension. Patient required pressors and was intubated due to dropping O2 sats. Lactate negative at 1.7 and 1.8. Ventilator at FiO2 50% and PEEP 5. Stress dose steroids ordered, continue with pressors. Continue additional treatment per plan in assessment above. (3) Acute renal failure Current Visit: Yes Status: Acute Creatinine 1.76, 1.61. eGFR of 33. Slightly elevated from baseline. Will continue to monitor i/o and labs. Qualifiers: Acute renal failure type: unspecified Qualified Code(s): N17.9 - Acute kidney failure, unspecified (4) Encephalopathy Current Visit: Yes Status: Acute Unknown etiology. Possibly secondary to acute illness, infection, and hypercapnia though review of prior ABG suggest chronic hypercapnia. Will continue supportive measures and continue to monitor. (5) Pneumonia Current Visit: Yes Status: Acute CXR revealed pulmonary vascular congestion with bilateral perihilar ill-defined ground glass opacity, no focal consolidation. Possible atypical infection. Will continue with antibiotic treatment at this time for possible HCAP as patient has a recent history of hospital stay and other living setting. Continue Zosyn and Vancomycin. Qualifiers: Pneumonia type: due to unspecified organism Laterality: bilateral Lung location: unspecified part of lung Qualified Code(s): J18.9 - Pneumonia, unspecified organism (6) Thrombocytopenia Current Visit: Yes Status: Acute Platelets at 28, immature platelet fraction 21.5. Will continue to monitor. Avoid antiplatelet/anticoagulants due to risk of bleed. EPCD for dvt ppx. (7) Hypothyroidism Current Visit: Yes Status: Chronic Patient with known history of thyroid disease unspecified. TSH at 5.824. 50mcg IV daily ordered. Patent on continuous tube feed. Qualifiers: Hypothyroidism type: unspecified Qualified Code(s): E03.9 - Hypothyroidism , unspecified (8) Hyperkalemia Current Visit: Yes Status: Acute (9) DVT prophylaxis Current Visit: Yes Status: Acute Intermittent pneumatic compression devices for dvt ppx. History of Present Illness Consult date: 05/13/16 Requesting physician: Matt Jonas Reason for consult: other (Ventilator Management, Sepsis, Pneumonia) Chief complaint: Altered Mental Status History of present illness: Ms. Lane is a 60 year old female with history including but not limited to mental handicap, chronic pancytopenia, COPD, cancer unspecified, renal disease, thyroid disease, diabetes, bipolar schizophrenia, anxiety, and surgical history including unspecified cancer surgery, cholecystectomy, and STACIE/BSO who was brought in from her custodial with worsening altered mental status for several hours prior to admission, feeling weaker over the past couple weeks, and has had decreased appetite. History based on caregiver reports noted in ER documentation. Patient was intbated on transport to ICU due to declinic O2 sats. Critical care was consulted for pneumonia, septic shock, and ventilator management. Past Med Surg Social Fam HX - Past Medical History Medical history: arthritis, cancer, COPD, dementia, diabetes, GERD, hyperlipidemia, hypertension, kidney stones, malignancy, osteoporosis, renal disease, seizures, thyroid disease, other Psychiatric history: anxiety, bipolar, schizophrenia, previous psychiatric hospitalization, other - Past Surgical History Surgical History: cancer surgery, cholecystectomy, hysterectomy, STACIE/BSO, other - Social History Smoking Status: Never smoker Smokeless Tobacco Status: No Alcohol use: none Drug use: none Medications and Allergies Aspirin 325 mg PO DAILY #30 tablet 06/11/15 [Rx] Docusate Sodium [Colace] 100 mg PO BID PRN #60 capsule 06/11/15 [Rx] Loratadine [Claritin] 10 mg PO DAILY #30 tablet 06/11/15 [Rx] Amlodipine Besylate 2.5 mg PO DAILY 01/28/16 [History] Azelastine 0.1% Nasal [place] [Astelin] 2 spray NS HS 01/28/16 [History] Betamethasone/Propylene Glyc [Betamethasone Dp Aug 0.05% Lot] 1 appl TP BID PRN 01/28/16 [History] Calcium Carbonate/Vitamin D3 [Calcium 500-Vit D3 400 Tablet] 1 tab PO BID [History] Divalproex (24 HR) [Depakote ER (24 HR)] 500 mg PO QAM 01/28/16 [History] Levothyroxine Sodium 88 mcg PO DAILY 01/28/16 [History] RisperiDONE [Risperdal] 3 mg PO DAILY 01/28/16 [History] Sodium Chloride [[place]] 2 spray NS Q6H PRN 01/28/16 [History] Acetaminophen [Tylenol] 500 mg PO Q4H PRN 04/05/16 [History] Benztropine Mesylate 1 mg PO BID 04/05/16 [History] Cholecalciferol (Vitamin D3) [Vitamin D3] 1,000 unit PO BID 04/05/16 [History] Cilostazol 100 mg PO BID 04/05/16 [History] Fluvoxamine [Luvox] 200 mg PO QAM 04/05/16 [History] LORazepam [Ativan] 0.5 mg PO BID 04/05/16 [History] Tetrahydrozoline HCl [Visine] 1 drop OP Q4HR PRN 04/05/16 [History] Divalproex (24 HR) [Depakote ER (24 HR)] 1,000 mg PO HS 05/12/16 [History] Allergies No Known Allergies Allergy (Verified 04/02/16 09:18) ROS unobtainable: due to endotracheal tube, due to mental status All Systems: A 10-system review of systems was performed and is negative for pertinent findings except as documented above in the HPI. Physical Examination Vital Signs: Vital Signs, Last 4 Hours Temp Pulse Resp BP Pulse Ox 05/13/16 11:17 98.9 F 05/13/16 11:00 69 14 91/44 99 05/13/16 10:00 99.0 F 81 14 105/38 100 05/13/16 09:00 98.6 F 86 14 121/48 99 05/13/16 08:09 14 100 05/13/16 08:00 98.3 F 89 14 101/37 100 05/13/16 07:47 98.2 F General appearance: other (intubated, eye movement when elicited, no extremity movement.) Eyes: nonicteric Neck: supple, no JVD Effort: normal Inspection: normal Auscultation: bilateral: rales, rhonchi, other (tight) Cardiovascular: regular rate and rhythm Gastrointestinal: hypoactive bowel sounds, soft, non-distended Integumentary: normal Extremities: no edema, pink and warm, pulses normal Musculoskeletal: no deformities non-focal exam Ventilator Settings Ventilator Settings: Ventilator Settings, Last 8 Hours Ventilator Mode A/C Ventilator Mode A/C Ventilator Mode A/C Ventilator Mode A/C Ventilator Mode A/C Ventilator Mode A/C Ventilator Mode A/C Ventilator Mode A/C Ventilator Mode A/C Ventilator Mode A/C Ventilator Mode A/C Ventilator Mode A/C Ventilator Mode A/C Ventilator Tidal Volume 500 Setting Ventilator Tidal Volume 500 Setting Ventilator Tidal Volume 500 Setting Ventilator Tidal Volume 500 Setting Ventilator Tidal Volume 500 Setting Ventilator Tidal Volume 500 Setting Ventilator Tidal Volume 500 Setting Ventilator Tidal Volume 500 Setting Ventilator Tidal Volume 500 Setting Ventilator Tidal Volume 500 Setting Ventilator Tidal Volume 500 Setting Ventilator Tidal Volume 500 Setting Ventilator Tidal Volume 500 Setting Ventilator Respiratory Rate 14 Setting Ventilator Respiratory Rate 14 Setting Ventilator Respiratory Rate 14 Setting Ventilator Respiratory Rate 14 Setting Ventilator Respiratory Rate 14 Setting Ventilator Respiratory Rate 14 Setting Ventilator Respiratory Rate 14 Setting Ventilator Respiratory Rate 14 Setting Ventilator Respiratory Rate 14 Setting Ventilator Respiratory Rate 14 Setting Ventilator Respiratory Rate 14 Setting Ventilator Respiratory Rate 14 Setting Ventilator Respiratory Rate 14 Setting Actual Respiratory Rate 14 Actual Respiratory Rate 14 Actual Respiratory Rate 14 Actual Respiratory Rate 14 Actual Respiratory Rate 14 Actual Respiratory Rate 14 Actual Respiratory Rate 14 Actual Respiratory Rate 17 Actual Respiratory Rate 17 Positive End Expiratory 5 Pressure Positive End Expiratory 5 Pressure Positive End Expiratory 5 Pressure Positive End Expiratory 5 Pressure Positive End Expiratory 5 Pressure Positive End Expiratory 5 Pressure Positive End Expiratory 5 Pressure Positive End Expiratory 5 Pressure Positive End Expiratory 5 Pressure Positive End Expiratory 5 Pressure Positive End Expiratory 5 Pressure Positive End Expiratory 5 Pressure Positive End Expiratory 5 Pressure Peak Inspiratory Airway 21 Pressure Peak Inspiratory Airway 21 Pressure Peak Inspiratory Airway 21 Pressure Peak Inspiratory Airway 22 Pressure Peak Inspiratory Airway 22 Pressure Peak Inspiratory Airway 23 Pressure Peak Inspiratory Airway 28 Pressure Peak Inspiratory Airway 25 Pressure Results - Laboratory Findings CBC and BMP: 05/13/16 15:00 05/13/16 15:00 ABG ABG pH 7.38 pH Units (7.32-7.45) 05/12/16 23:13 ABG pCO2 58 mmHg (35-45) H 05/12/16 23:13 ABG pO2 146 mmHg (85-104) H 05/12/16 23:13 ABG O2 Saturation 99 % (95-98) H 05/12/16 23:13 PT/INR, D-dimer PT 10.8 Seconds (9.4-12.1) 05/12/16 22:00 Abnormal lab findings: Abnormal lab results RBC 2.72 M/mcL (3.82-4.97) L 05/12/16 22:29 Hgb 8.7 g/dL (11.5-15.4) L 05/12/16 22:29 Hct 27.0 % (35.3-44.9) L 05/12/16 22: RDW 15.4 % (11.5-14.5) H 05/12/16 22:29 Plt Count 28 K/mcL (140-400) L* 05/12/16 22: MPV 13.3 fL (9.4-12.4) H 05/12/16 22: Lymphocytes # 0.3 K/mcL (0.6-4.6) L 05/12/16 22:29 Nucleated RBCs/100 WBC 0.5 /100 WBC (0) H 05/12/16 22:29 Platelet Estimate Decreased (Normal) L 05/12/16: Immature Plt Fraction 21.5 % (1.1-6.1) H 05/12/16 22:29 ABG pCO2 58 mmHg (35-45) H 05/12/16 23:13 ABG pO2 146 mmHg (85-104) H 05/12/16 23:13 ABG HCO3 34.3 mEQ/L (21-27) H 05/12/16 23:13 ABG Total CO2 36.1 mEq/L (20-26) H 05/12/16 23:13 ABG O2 Saturation 99 % (95-98) H 05/12/16 23:13 ABG Base Excess 8.5 mEq/L (-2.0 to 3.0) H 05/12/16 23:13 Sodium 147 mEq/L (136-145) H 05/12/16 22:00 Potassium 5.9 mEq/L (3.5-4.5) H 05/12/16 22:00 Chloride 114 mEq/L (98-109) H 05/12/16 22:00 BUN 38 mg/dL (7-20) H 05/12/16 22:00 Creatinine 1.68 mg/dL (0.57-1.11) H 05/12/16 22:00 Est GFR ( Amer) 38 (> 60) L 01/16/17 22:00 Est GFR (Non-Af Amer) 31 (> 60) L 05/12/16 22:00 POC Glucose 140 (58-89) H 05/13/16 01:03 Calculated Osmolality 312 (280-300) H 05/12/16 22:00 AST 55 Units/L (5-34) H 05/12/16 22:00 Serum Total Protein 5.7 g/dL (6.0-8.3) L 05/12/16 22:00 Albumin 2.8 g/dL (3.5-5.0) L 05/12/16 22:00 Albumin/Globulin Ratio 1.0 (1.1-2.2) L 05/12/16 22:00 Urine Blood Moderate (Negative) H 05/12/16 22:20 Urine Microscopic RBC 5-15 per hpf (0-3) H 05/12/16 22:20 Ur Squamous Epith Cells Many per lpf (None-Few) H 05/12/16 22:20 - Clinical Findings Intake & Output: Intake & Output 05/12/16 05/13/16 05/13/16 23:59 07:59 15:59 Intake Total 754 / 754 883 / 883 Output Total 300 / 300 325 / 325 Balance 454 / 454 558 / 558 Consult Discharge Plan - Plan Referrals: NO,PCP [Primary Care Provider] -
[2016-05-13 11:27] LABS: Platelet Count 37 K/mcL (140-400)
[2016-05-13 11:34] LABS: Albumin 2.3 g/dL (3.5-5.0); Albumin/Globulin Ratio 0.8 (1.1-2.2); Bilirubin,Total 0.7 mg/dL (0.2-1.2); Calcium 9.2 mg/dL (8.6-10.8); Phosphorous 1.5 mg/dL (2.3-4.7); Potassium 4.7 mEq/L (3.5-4.5); Total Protein 5.3 g/dL (6.0-8.3)
[2016-05-13 11:50] LABS: ABG Base Excess 7.7 mEq/L (-2.0 to 3.0); ABG HCO3 30.6 mEQ/L (21-27); ABG Oxygen Saturation 99 % (95-98); ABG PCO2 35 mmHg (35-45); ABG PH 7.55 pH Units (7.32-7.45); ABG PO2 132 mmHg (85-104); ABG TCO2 31.7 mEq/L (20-26)
[2016-05-13 11:51] LABS: Blood Gas FiO2 40 %
[2016-05-13 12:02] LABS: Dohle Bodies Present (Not Present); Lymphocytes # 1.3 K/mcL (0.6-4.6); Monocytes # 0.7 K/mcL (0.0-1.3); Neutrophils # 9.1 K/mcL (1.6-8.9); Platelet Estimate Marked Decrease (Normal); Toxic Granulation Present (Not Present)
[2016-05-13 12:05] LABS: Thyroid Stimulating Hormone 5.824 mcIU/mL (0.350-4.840)
[2016-05-13] MEDS: Hydrocortisone Sodium Succ 100 MG/2 ML VIAL IVP SCH ×3 (12:43→23:47)
[2016-05-13] MEDS: Lacri-Lube 3.5 GM TUBE BOTH EYES SCH ×4 (12:43→23:45)
[2016-05-13] MEDS ORDERED: Vancomycin 1,000 MG in D5% in Water 250 ML IVPB SCH (13:00)
--- NOTE | 2016-05-13 13:41 | Event Note ---
Date of Encounter: 05/13/16 Time of Encounter: 13:38 Attending Attestation to Resident Note: The patient was seen and examined with the house staff. Care was discussed on multidisciplinary rounds. Full resident note is pending. This will serve as my addendum to the resident note. 1. Acute respiratory failure with hypoxia and hypercapnia 2. Shock 3. Encephalopathy 4. Acute renal failure 5. Pneumonia 60-year-old white female with medical history significant for COPD, dementia, chronic pancytopenia who presents with respiratory failure, encephalopathy, and shock. The respiratory failure appears multifactorial in etiology and due to both hypoxia and hypercapnia. I assume she has chronic baseline hypercapnia based on current and previous blood gases. Hypoxia is likely secondary to pneumonia and pulmonary edema (unclear if this is cardiogenic versus noncardiogenic). Continue full vent support and wean FiO2 to tolerance. Encephalopathy may be a barrier to breathing trials and extubation. Shock is likely septic in etiology. Source of infection appears to be pulmonary with concerns for recurrent aspiration pneumonia. She does have a history of recent pneumonia with IV antibiotics. Continue vancomycin and Zosyn. I have checked an MRSA nasal probe, strep/legionella urine antigens, and sputum cultures. She was reportedly given 3 L of saline in the emergency department, and bedside evaluation of the inferior vena cava is consistent with adequate volume resuscitation. Continue to titrate vasopressors for a goal mean arterial pressure of 65 mmHg. I have added stress dose steroids and vasopressin. She was significantly hypothermic, which could be due to to sepsis , but after discussion with pharmacy she was on thyroid replacement therapy so I will check a TSH. Initial lactate was normal, and we will trend this. Encephalopathy of unclear etiology, but I suspect toxic/metabolic with acute illness/infection and hypercapnia contributing. We will continue supportive measures. Acute renal failure likely due to ATN/hypoperfusion. She had associated hyperkalemia. We will repeat labs and trend urine output and Chem-7 as we resuscitate. Prognosis guarded. Overall failure to thrive with recurrent aspiration. She has a legal guardian, and we may need to discuss tracheostomy tube and PEG tube placement if she does not show significant improvement this hospitalization.
[2016-05-13] MEDS ORDERED: Potassium Phosphate 44 MEQ in 0.9 % Sodium Chloride 250 ML IVPB PRN (14:30)
[2016-05-13] MEDS ORDERED: Calcium Gluconate 1,000 MG in D5% in Water 100 ML IVPB PRN (14:30)
[2016-05-13] MEDS ORDERED: Magnesium Sulfate 2 GM in D5% in Water 100 ML IVPB PRN (14:30)
[2016-05-13] MEDS ORDERED: Sodium Phosphate 30 MMOL in D5% in Water 100 ML IVPB PRN (14:30)
[2016-05-13] MEDS ORDERED: Potassium Chloride 40 MEQ/200 ML BAG IVPB PRN (14:30)
[2016-05-13 15:15] LABS: Mean Corpuscular Volume 95.1 fL (83.0-100.0); Nucleated Red Blood Cells 0.7 /100 WBC (0)
[2016-05-13 15:17] LABS: Hematocrit 25.3 % (35.3-44.9); Hemoglobin 8.3 g/dL (11.5-15.4); Immature Platelets 18.4 % (1.1-6.1); Mean Corpuscular HGB Conc 32.8 g/dL (31.6-35.5); Mean Corpuscular Hemoglobin 31.2 pg (28.0-33.3); Mean Platelet Volume 13.7 fL (9.4-12.4); Red Blood Count 2.66 M/mcL (3.82-4.97); Red Cell Distribution Width 15.3 % (11.5-14.5)
[2016-05-13 15:19] LABS: Ionized Calcium 1.2 mmol/L (1.15-1.35)
[2016-05-13 15:23] LABS: Platelet Count 35 K/mcL (140-400)
[2016-05-13 15:29] LABS: Calcium 8.7 mg/dL (8.6-10.8); Magnesium 1.3 mg/dL (1.6-2.6); Potassium 4.6 mEq/L (3.5-4.5)
[2016-05-13 16:16] LABS: Lymphocytes # 0.2 K/mcL (0.6-4.6); Neutrophils # 10.1 K/mcL (1.6-8.9)
[2016-05-13 16:17] LABS: Platelet Estimate Marked Decrease (Normal)
--- NOTE | 2016-05-13 18:13 | Electrocardiograph Report ---
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
[2016-05-13] MEDS: Chlorhexidine Rinse 15 ML MOUTHWASH MM SCH (19:29)
[2016-05-14 01:36] LABS: Magnesium 1.8 mg/dL (1.6-2.6)
[2016-05-14 01:37] LABS: Phosphorous 3.3 mg/dL (2.3-4.7)
[2016-05-14] MEDS: Piperacillin/Tazobactam 3.375 GM in D5% in Water (Mini-Bag+) 100 ML IVPB SCH ×3 (01:37→16:18)
[2016-05-14] MEDS: Vasopressin 20 UNIT in 0.9 % Sodium Chloride 50 ML IVC SCH ×3 (03:12→16:14)
[2016-05-14] MEDS: Lacri-Lube 3.5 GM TUBE BOTH EYES SCH ×2 (03:13→09:28)
[2016-05-14 04:27] LABS: ABG Base Excess 0.8 mEq/L (-2.0 to 3.0); ABG HCO3 23.1 mEQ/L (21-27); ABG Oxygen Saturation 99 % (95-98); ABG PCO2 27 mmHg (35-45); ABG PH 7.54 pH Units (7.32-7.45); ABG PO2 135 mmHg (85-104); ABG TCO2 23.9 mEq/L (20-26)
[2016-05-14 04:28] LABS: Blood Gas FiO2 40 %
[2016-05-14 04:42] LABS: Hemoglobin 7.8 g/dL (11.5-15.4); Nucleated Red Blood Cells 1.3 /100 WBC (0)
[2016-05-14 04:44] LABS: Hematocrit 23.1 % (35.3-44.9); Immature Granulocytes % 0.7 % (0-4); Immature Platelets 18.8 % (1.1-6.1); Lymphocytes # 0.5 K/mcL (0.6-4.6); Lymphocytes % 12.1 %; Mean Corpuscular HGB Conc 33.8 g/dL (31.6-35.5); Mean Corpuscular Hemoglobin 31.7 pg (28.0-33.3); Mean Corpuscular Volume 93.9 fL (83.0-100.0); Mean Platelet Volume 13.7 fL (9.4-12.4); Monocytes # 0.1 K/mcL (0.0-1.3); Neutrophils # 3.8 K/mcL (1.6-8.9); Red Blood Count 2.46 M/mcL (3.82-4.97); Red Cell Distribution Width 15.3 % (11.5-14.5); Segmented Neutrophils % 85.2 %
[2016-05-14 04:54] LABS: Calcium 8.4 mg/dL (8.6-10.8); Potassium 4.6 mEq/L (3.5-4.5)
[2016-05-14 04:55] LABS: Platelet Count 21 K/mcL (140-400)
[2016-05-14] MEDS: Hydrocortisone Sodium Succ 100 MG/2 ML VIAL IVP SCH ×3 (05:41→16:19)
[2016-05-14] MEDS: Pantoprazole 40 MG VIAL IVP SCH ×2 (05:41→16:19)
[2016-05-14] MEDS ORDERED: D5% in Water 1,000 ML IV PRN (05:47)
[2016-05-14] MEDS ORDERED: Dextrose Gel 15 GM PO PRN ×2 (05:47)
[2016-05-14] MEDS ORDERED: *HR* Dextrose 50 % in Water (Syg) 50 ML SYRINGE IVP PRN (05:47)
[2016-05-14 05:49] LABS: Platelet Estimate Marked Decrease (Normal)
[2016-05-14] MEDS: Insulin LISPRO 300 UNITS/3 ML VIAL SQ SCH ×3 (06:14→18:41)
--- NOTE | 2016-05-14 07:39 | Pulmonology Progress Note ---
Date of Encounter: 05/14/16 Time of Encounter: 07:37 Assessment and Plan (1) Acute respiratory failure with hypoxia and hypercapnia Current Visit: Yes Status: Acute Patient intubated and sedated, moves extremities when prompted, spontaneous eye movement. Respiratory failure likely secondary to pneumonia and pulmonary edema. Continue breathing treatments, stress steroids, and antibiotics to cover for HCAP vs aspiration due to dysphagia. Ventilator setting titraeted down. Now 98% on nasal cannula. Continue monitoring vitals. (2) Septic shock Current Visit: Yes Status: Acute Levophed stopped. Bp borderline low-normal and sinus bradycardic. Lactate was negative at 1.8 yesterday. Continue with stress dose steroids. Vasopressin stopped. Continue additional treatment per plan in assessment above. (3) Acute renal failure Current Visit: Yes Status: Acute Cr 1.49, decreased from 1.61 yesterday. Urine output 1700. Will continue to monitor i/o and labs. Qualifiers: Acute renal failure type: unspecified Qualified Code(s): N17.9 - Acute kidney failure, unspecified (4) Encephalopathy Current Visit: Yes Status: Acute Unknown etiology. Possibly secondary to acute illness or infection. Will continue supportive measures and continue to monitor. (5) Pneumonia Current Visit: Yes Status: Acute Continue antibiotic treatment for possible HCAP. Continue Zosyn and vancomycin d2. Qualifiers: Pneumonia type: due to unspecified organism Laterality: bilateral Lung location: unspecified part of lung Qualified Code(s): J18.9 - Pneumonia, unspecified organism (6) Thrombocytopenia Current Visit: Yes Status: Acute Platelets at 21. Will continue to monitor. Avoid antiplatelet/anticoagulants due to risk of bleed. (7) Sinus bradycardia Current Visit: Yes Status: Acute Bp low-normal. Heart rate in 30-40s after levophed stopped. Continue to monitor. Will hold av marge blocking agents and continue to monitor. (8) Hypothyroidism Current Visit: Yes Status: Chronic Thyroid replacement med ordered. Qualifiers: Hypothyroidism type: unspecified Qualified Code(s): E03.9 - Hypothyroidism , unspecified (9) Hyperkalemia Current Visit: Yes Status: Acute Potassium stable at 4.6. Will continue to monitor labs. (10) Dysphagia Current Visit: Yes Status: Acute History of dysphagia resulting in hospitalization for possible aspiration pneumonia. Will continue NPO with tube feeds. Will discuss with caretakers regarding diet and requirement for possible strategies including peg tube. Qualifiers: Dysphagia type: unspecified Qualified Code(s): R13.10 - Dysphagia, unspecified (11) DVT prophylaxis Current Visit: Yes Status: Acute EPCD ordered. Subjective Principal diagnosis: Altered mental status, Acute resp failure, septic shock Interval history: Patient comfortably sedated on ventilator, moves all extremities, spontaneous eye opening. PEEP at 5, FiO2 at 40%. Bp stable, hr dropping to 30-40s overnight while titrating down levophed. Objective PUL Vital signs: Last Vital Signs Temp 96.3 F L 05/14/16 05:00 Pulse 43 05/14/16 06:07 Resp 14 05/14/16 07:35 BP 102/50 05/14/16 07:35 Pulse Ox 100 05/14/16 07:35 General appearance: other (intubated on ventilator, spontaneous eye movement, moves all extremities when prompted.) Eyes: nonicteric Neck: supple Effort: normal Auscultation: bilateral: diminished breath sounds, rhonchi, other (tight) Cardiovascular: other (sinus bradycardic, no murmurs) Gastrointestinal: absent bowel sounds, soft, non-distended Integumentary: normal Extremities: no cyanosis, pink and warm Musculoskeletal: no deformities non-focal exam, pupils equal and round Ventilator Settings Ventilator Settings: Ventilator Settings, Last 8 Hours Ventilator Mode A/C Ventilator Mode A/C Ventilator Mode A/C Ventilator Mode A/C Ventilator Mode A/C Ventilator Mode A/C Ventilator Mode A/C Ventilator Mode A/C Ventilator Mode A/C Ventilator Mode A/C Ventilator Mode A/C Ventilator Mode A/C Ventilator Tidal Volume 500 Setting Ventilator Tidal Volume 500 Setting Ventilator Tidal Volume 500 Setting Ventilator Tidal Volume 500 Setting Ventilator Tidal Volume 500 Setting Ventilator Tidal Volume 500 Setting Ventilator Tidal Volume 500 Setting Ventilator Tidal Volume 500 Setting Ventilator Tidal Volume 500 Setting Ventilator Tidal Volume 500 Setting Ventilator Tidal Volume 500 Setting Ventilator Tidal Volume 500 Setting Ventilator Respiratory Rate 14 Setting Ventilator Respiratory Rate 14 Setting Ventilator Respiratory Rate 14 Setting Ventilator Respiratory Rate 14 Setting Ventilator Respiratory Rate 14 Setting Ventilator Respiratory Rate 14 Setting Ventilator Respiratory Rate 14 Setting Ventilator Respiratory Rate 14 Setting Ventilator Respiratory Rate 14 Setting Ventilator Respiratory Rate 14 Setting Ventilator Respiratory Rate 14 Setting Ventilator Respiratory Rate 14 Setting Actual Respiratory Rate 14 Actual Respiratory Rate 14 Actual Respiratory Rate 14 Actual Respiratory Rate 14 Positive End Expiratory 5 Pressure Positive End Expiratory 5 Pressure Positive End Expiratory 5 Pressure Positive End Expiratory 5 Pressure Positive End Expiratory 5 Pressure Positive End Expiratory 5 Pressure Positive End Expiratory 5 Pressure Positive End Expiratory 5 Pressure Positive End Expiratory 5 Pressure Positive End Expiratory 5 Pressure Positive End Expiratory 5 Pressure Positive End Expiratory 5 Pressure Peak Inspiratory Airway 25 Pressure Peak Inspiratory Airway 26 Pressure Peak Inspiratory Airway 25 Pressure Peak Inspiratory Airway 26 Pressure Results - Laboratory Findings CBC and BMP: 05/14/16 04:29 05/14/16 04:29 ABG ABG pH 7.54 pH Units (7.32-7.45) H 05/14/16 04:18 ABG pCO2 27 mmHg (35-45) L 05/14/16 04:18 ABG pO2 135 mmHg (85-104) H 05/14/16 04:18 ABG O2 Saturation 99 % (95-98) H 05/14/16 04:18 PT/INR, D-dimer PT 10.8 Seconds (9.4-12.1) 05/12/16 22:00 Abnormal lab findings: Abnormal lab results RBC 2.46 M/mcL (3.82-4.97) L 05/14/16 04:29 Hgb 7.8 g/dL (11.5-15.4) L 05/14/16 04:29 Hct 23.1 % (35.3-44.9) L 05/14/16 04:29 RDW 15.3 % (11.5-14.5) H 05/14/16 04:29 Plt Count 21 K/mcL (140-400) L* 05/14/16 04:29 MPV 13.7 fL (9.4-12.4) H 05/14/16 04:29 Lymphocytes # 0.5 K/mcL (0.6-4.6) L 05/14/16 04:29 Nucleated RBCs/100 WBC 1.3 /100 WBC (0) H 05/14/16 04:29 Toxic Granulation Present (Not Present) A 05/13/16 11:10 Dohle Bodies Present (Not Present) A 05/13/16 11:10 Platelet Estimate Marked Decrease (Normal) L 05/14/16 04:29 Immature Plt Fraction 18.8 % (1.1-6.1) H 05/14/16 04:29 ABG pH 7.54 pH Units (7.32-7.45) H 05/14/16 04:18 ABG pCO2 27 mmHg (35-45) L 05/14/16 04:18 ABG pO2 135 mmHg (85-104) H 05/14/16 04:18 ABG O2 Saturation 99 % (95-98) H 05/14/16 04:18 Potassium 4.6 mEq/L (3.5-4.5) H 05/14/16 04:29 Chloride 110 mEq/L (98-109) H 05/14/16 04:29 BUN 28 mg/dL (7-20) H 05/14/16 04:29 Creatinine 1.49 mg/dL (0.57-1.11) H 05/14/16 04:29 Est GFR ( Amer) 43 (> 60) L 05/14/16 04:29 Est GFR (Non-Af Amer) 36 (> 60) L 05/14/16 04:29 Glucose 186 mg/dL (70-99) H 05/14/16 04:29 POC Glucose 203 (58-89) H 05/13/16 23:51 Calcium 8.4 mg/dL (8.6-10.8) L 05/14/16 04:29 AST 48 Units/L (5-34) H 05/13/16 11:10 B-Natriuretic Peptide 105 pg/mL (0-100) H 05/13/16 11:10 Serum Total Protein 5.3 g/dL (6.0-8.3) L 05/13/16 11:10 Albumin 2.3 g/dL (3.5-5.0) L 05/13/16 11:10 Albumin/Globulin Ratio 0.8 (1.1-2.2) L 05/13/16 11:10 TSH 5.824 mcIU/mL (0.350-4.840) H 05/13/16 11:10 Urine Blood Moderate (Negative) H 05/12/16 22:20 Urine Microscopic RBC 5-15 per hpf (0-3) H 05/12/16 22:20 Ur Squamous Epith Cells Many per lpf (None-Few) H 05/12/16 22:20 - Microbiology Findings Microbiology Findings: Microbiology, Last 48 Hours 05/13/16 15:05 Legionella Antigen - Final Urine,[place] Streptococcus pneumoniae Antigen (M - Final 05/13/16 11:00 Sputum Culture - Preliminary Sputum - Clinical Findings Intake & Output: Intake & Output 05/13/16 05/13/16 05/14/16 15:59 23:59 07:59 Intake Total 1976 613 / 613 372 / 372 Output Total 725 / 725 375 / 375 300 / 300 Balance 1252 / 1252 238 / 238 72 / 72 Weight 63 kg 76.912 kg - VTE Documentation of Mechanical Device: Graduated compression elastic hosiery Consult Discharge Plan - Plan Referrals: NO,PCP [Primary Care Provider] -
[2016-05-14] MEDS ORDERED: Levofloxacin 750 MG/150 ML 750 MG/150 ML BAG IVPB SCH (09:00)
[2016-05-14] MEDS: FentaNYL (PF) 1,000 MCG in 0.9 % Sodium Chloride 80 ML IVC SCH (09:28)
[2016-05-14] MEDS: Chlorhexidine Rinse 15 ML MOUTHWASH MM SCH (09:33)
[2016-05-14] MEDS: Levothyroxine Sodium 100 MCG VIAL IVP SCH (09:33)
[2016-05-14] MEDS: Haloperidol Lactate 5 MG/ML VIAL IVP SCH ×2 (15:04→21:09)
[2016-05-14] MEDS: Valproic Acid INJ 500 MG in 0.9 % Sodium Chloride 100 ML IVPB SCH ×2 (15:05→21:38)
[2016-05-14] MEDS: Haloperidol Lactate 5 MG/ML VIAL IVP PRN ×2 (16:19→23:06)
[2016-05-15] MEDS: Insulin LISPRO 300 UNITS/3 ML VIAL SQ SCH ×3 (00:17→12:05)
[2016-05-15] MEDS: Piperacillin/Tazobactam 3.375 GM in D5% in Water (Mini-Bag+) 100 ML IVPB SCH ×2 (00:45→08:42)
[2016-05-15] MEDS: Haloperidol Lactate 5 MG/ML VIAL IVP SCH ×3 (01:52→15:21)
[2016-05-15 04:37] LABS: Calcium 8.9 mg/dL (8.6-10.8); Potassium 3.8 mEq/L (3.5-4.5)
[2016-05-15] MEDS: Vasopressin 20 UNIT in 0.9 % Sodium Chloride 50 ML IVC SCH (04:40)
[2016-05-15] MEDS: Pantoprazole 40 MG VIAL IVP SCH (05:59)
[2016-05-15] MEDS: Valproic Acid INJ 500 MG in 0.9 % Sodium Chloride 100 ML IVPB SCH ×2 (06:00→15:21)
[2016-05-15 06:02] LABS: Eosinophils % 0.1 %; Hematocrit 23.4 % (35.3-44.9); Hemoglobin 7.7 g/dL (11.5-15.4); Immature Granulocytes % 1.5 % (0-4); Lymphocytes % 12.5 %; Mean Corpuscular HGB Conc 32.9 g/dL (31.6-35.5); Mean Corpuscular Volume 94.4 fL (83.0-100.0); Mean Platelet Volume 12.7 fL (9.4-12.4); Monocytes # 0.4 K/mcL (0.0-1.3); Monocytes % 4.3 %; Neutrophils # 6.6 K/mcL (1.6-8.9); Nucleated Red Blood Cells 0.9 /100 WBC (0); Red Blood Count 2.48 M/mcL (3.82-4.97); Red Cell Distribution Width 15.4 % (11.5-14.5); Segmented Neutrophils % 81.6 %
[2016-05-15 06:05] LABS: Ionized Calcium 1.24 mmol/L (1.15-1.35)
[2016-05-15 06:05] LABS: Platelet Count 25 K/mcL (140-400)
[2016-05-15 06:39] LABS: Phosphorous 2.7 mg/dL (2.3-4.7)
[2016-05-15] MEDS ORDERED: *HR* Dextrose 50 % in Water (Syg) 50 ML SYRINGE IVP PRN (07:13)
[2016-05-15] MEDS ORDERED: D5% in Water 1,000 ML IV PRN (07:13)
[2016-05-15] MEDS ORDERED: Dextrose Gel 15 GM PO PRN ×2 (07:13)
--- NOTE | 2016-05-15 07:58 | Pulmonology Progress Note ---
Date of Encounter: 05/15/16 Time of Encounter: 07:57 Assessment and Plan (1) Acute respiratory failure with hypoxia and hypercapnia Current Visit: Yes Status: Resolved Patient extubated yesterday morning. Vitals stable. Satting at 98% on 3L nasal cannula Respiratory failure likely secondary to pneumonia vs pulmonary edema Continue antibiotics to cover for HCAP vs aspiration due to dysphagia. (2) Septic shock Current Visit: Yes Status: Resolved Resolved. (3) Acute renal failure Current Visit: Yes Status: Acute Cr 1.61, increased from 1.49 yesterday. Urine output 3600 mL/24hrs. D5 1/2 normal saline at 75mL ordered. Will continue to monitor i/o and labs. Qualifiers: Acute renal failure type: unspecified Qualified Code(s): N17.9 - Acute kidney failure, unspecified (4) Encephalopathy Current Visit: Yes Status: Resolved Resolved, back to baseline. Unknown etiology. Possibly secondary to acute illness or infection. Will continue supportive measures and continue to monitor. (5) Pneumonia Current Visit: Yes Status: Acute Continue antibiotic treatment for possible HCAP vs aspiration. Stop Zosyn d3, start rocephin. Vancomycin discontinued yesterday Qualifiers: Pneumonia type: due to unspecified organism Laterality: bilateral Lung location: unspecified part of lung Qualified Code(s): J18.9 - Pneumonia, unspecified organism (6) Thrombocytopenia Current Visit: Yes Status: Acute Platelets at 25. Will continue to monitor. Avoid antiplatelet/anticoagulants due to risk of bleed. (7) Sinus bradycardia Current Visit: Yes Status: Resolved Resolved (8) Hypothyroidism Current Visit: Yes Status: Chronic Thyroid replacement med ordered. Qualifiers: Hypothyroidism type: unspecified Qualified Code(s): E03.9 - Hypothyroidism , unspecified (9) Hyperkalemia Current Visit: Yes Status: Acute Potassium stable at 3.8. Will continue to monitor labs. (10) Dysphagia Current Visit: Yes Status: Chronic History of dysphagia resulting in hospitalization for possible aspiration pneumonia. Will continue NPO. Discussed PEG tube placement with guardian yesterday. Qualifiers: Dysphagia type: unspecified Qualified Code(s): R13.10 - Dysphagia, unspecified (11) DVT prophylaxis Current Visit: Yes Status: Acute EPCD ordered. Subjective Principal diagnosis: Altered mental status, Acute resp failure, septic shock Interval history: Patient doing well without complaints, no changes overnight. Patient has been restless and vocal due to chronic mental disability at baseline. Objective PUL Vital signs: Last Vital Signs Temp 98.0 F 05/15/16 07:24 Pulse 92 05/15/16 06:00 Resp 22 05/15/16 06:00 BP 115/56 05/15/16 06:00 Pulse Ox 98 05/15/16 06:00 General appearance: no acute distress, alert, other (restless, but comfortable) Eyes: nonicteric ENT: oropharynx moist Neck: supple Effort: normal Auscultation: bilateral: clear Cardiovascular: regular rate and rhythm Gastrointestinal: normoactive bowel sounds, soft, non-tender, non-distended Integumentary: normal Extremities: no cyanosis, no edema, pink and warm, pulses normal Musculoskeletal: no deformities pupils equal and round, motor strength normal and symmetric, other (Oriented to person) mood appropriate, affect normal Results - Laboratory Findings CBC and BMP: 05/15/16 05:55 05/15/16 04:07 ABG ABG pH 7.54 pH Units (7.32-7.45) H 05/14/16 04:18 ABG pCO2 27 mmHg (35-45) L 05/14/16 04:18 ABG pO2 135 mmHg (85-104) H 05/14/16 04:18 ABG O2 Saturation 99 % (95-98) H 05/14/16 04:18 PT/INR, D-dimer PT 10.8 Seconds (9.4-12.1) 05/12/16 22:00 Abnormal lab findings: Abnormal lab results RBC 2.48 M/mcL (3.82-4.97) L 05/15/16 05:55 Hgb 7.7 g/dL (11.5-15.4) L 05/15/16 05:55 Hct 23.4 % (35.3-44.9) L 05/15/16 05:55 RDW 15.4 % (11.5-14.5) H 05/15/16 05:55 Plt Count 25 K/mcL (140-400) L* 05/15/16 05:55 MPV 12.7 fL (9.4-12.4) H 05/15/16 05:55 Nucleated RBCs/100 WBC 0.9 /100 WBC (0) H 05/15/16 05:55 Toxic Granulation Present (Not Present) A 05/13/16 11:10 Dohle Bodies Present (Not Present) A 05/13/16 11:10 Platelet Estimate Marked Decrease (Normal) L 05/14/16 04:29 Immature Plt Fraction 18.8 % (1.1-6.1) H 05/14/16 04:29 ABG pH 7.54 pH Units (7.32-7.45) H 05/14/16 04:18 ABG pCO2 27 mmHg (35-45) L 05/14/16 04:18 ABG pO2 135 mmHg (85-104) H 05/14/16 04:18 ABG O2 Saturation 99 % (95-98) H 05/14/16 04:18 Sodium 149 mEq/L (136-145) H D 05/15/16 04:07 Chloride 119 mEq/L (98-109) H 05/15/16 04:07 BUN 29 mg/dL (7-20) H 05/15/16 04:07 Creatinine 1.61 mg/dL (0.57-1.11) H 05/15/16 04:07 Est GFR ( Amer) 39 (> 60) L 05/15/16 04:07 Est GFR (Non-Af Amer) 33 (> 60) L 05/15/16 04:07 Calculated Osmolality 313 (280-300) H 05/15/16 04:07 AST 48 Units/L (5-34) H 05/13/16 11:10 B-Natriuretic Peptide 105 pg/mL (0-100) H 05/13/16 11:10 Serum Total Protein 5.3 g/dL (6.0-8.3) L 05/13/16 11:10 Albumin 2.3 g/dL (3.5-5.0) L 05/13/16 11:10 Albumin/Globulin Ratio 0.8 (1.1-2.2) L 05/13/16 11:10 TSH 5.824 mcIU/mL (0.350-4.840) H 05/13/16 11:10 Urine Blood Moderate (Negative) H 05/12/16 22:20 Urine Microscopic RBC 5-15 per hpf (0-3) H 05/12/16 22:20 Ur Squamous Epith Cells Many per lpf (None-Few) H 05/12/16 22:20 - Microbiology Findings Microbiology Findings: Microbiology, Last 48 Hours 05/13/16 11:00 Sputum Culture - Final Sputum 05/13/16 15:05 Legionella Antigen - Final Urine,[place] Streptococcus pneumoniae Antigen (M - Final - Clinical Findings Intake & Output: Intake & Output 05/14/16 05/14/16 05/15/16 15:59 23:59 07:59 Intake Total 168 / 168 310 / 310 205 / 205 Output Total 175 / 175 1700 / 1700 1525 / 1525 Balance -7 / -7 -1390 / -1390 -1320 / -1320 Weight 75.977 kg 74.227 kg - VTE Documentation of Mechanical Device: Intermittent pneumatic compression device Consult Discharge Plan - Plan Referrals: NO,PCP [Primary Care Provider] -
[2016-05-15] MEDS: Levothyroxine Sodium 100 MCG VIAL IVP SCH (08:42)
[2016-05-15] MEDS: FentaNYL (PF) 1,000 MCG in 0.9 % Sodium Chloride 80 ML IVC SCH (08:43)
[2016-05-15] MEDS ORDERED: D5% in 0.45% NACL 1,000 ML IVC SCH (11:00)
--- NOTE | 2016-05-15 14:34 | Event Note ---
Date of Encounter: 05/15/16 Time of Encounter: 14:31 I had a discussion with the patient's guardian and multiple caregivers. The patient is suffering from severe dementia and recurrent aspiration. Her most recent episode of aspiration resulted in respiratory failure and septic shock. We discussed strict nothing by mouth status with feeding tube placement versus allowing comfort feedings and initiation of DNR CC with hospice. All were in agreement that the patient's quality of life would be impacted significantly with nothing by mouth status and a feeding tube. The consensus was that we should proceed with DNR CC status and enrollment in hospice as we allow the patient to eat for comfort. I will consult the palliative care team to assist with hospice placement. Okay to transfer the patient out of intensive care unit.
--- NOTE | 2016-05-15 15:35 | Palliative - Consult Note ---
Date of Encounter: 05/15/16 Time of Encounter: 15:00 - Assessment and Plan (1) Dysphagia Current Visit: Yes Status: Chronic Assessment and plan: It has been decided to not pursue PEG and allow comfort feeds. Will order once DNR status confirmed with [employer]. Qualifiers: Dysphagia type: unspecified Qualified Code(s): R13.10 - Dysphagia, unspecified (2) Counseling regarding advanced care planning and goals of care Current Visit: Yes Status: Acute Assessment and plan: Patient has [employer] guardian, Polina Delacruz [phone]. Forms have been completed for DNR status change and withholding of artificial nutrition by Dr. Marcello Wesley and myself and have been faxed to [facility]. Awaiting approval of DNR and will complete state form at that time. Discussed with guardian, and she would like pt to return to snf with [facility] upon discharge. Will continue to follow (3) Aspiration pneumonia Current Visit: Yes Status: Acute Qualifiers: Aspiration pneumonia type: unspecified Laterality: bilateral Lung location: unspecified part of lung Qualified Code(s): J69.0 - Pneumonitis due to inhalation of food and vomit (4) Acute renal failure Current Visit: Yes Status: Acute Qualifiers: Acute renal failure type: unspecified Qualified Code(s): N17.9 - Acute kidney failure, unspecified (5) Acute respiratory failure with hypoxia and hypercapnia Current Visit: Yes Status: Resolved Palliative-CN HPI - Data of Consult Consult date: 05/15/16 Requesting Physician: Fady Jeffrey MD Primary Care Provider: PCP NO - Consult Narrative Palliative Care/Comfort Measures: Palliative care History of present illness: Ms. Lane is a 60 year old female with a history of dementia and recurrent aspiration pneumonia, who has had 3 recent admissions for the same. She is currently in the ICU receiving fluids and antibiotics. Currently NPO until goals of care can be established. She has [employer] appointed guardian, Polina Delacruz, who has been here and had discussion with the ICU team. Decision has been made not to pursue artificial feeding. Upon my arrival, pt is awake and talkative. She constantly repeats " I need Maurice Bench" and other statements involving the same. She can however, answer some questions appropriately, and tells me her favorite food is "maurice marzetti and root beer". Denies pain/ dyspnea or other discomfort. Appears in no distress. CC: Fady Jeffrey MD Past Med Surg Social Fam HX - Past Medical History Medical history: arthritis, cancer, COPD, dementia, diabetes, GERD, hyperlipidemia, hypertension, kidney stones, malignancy, osteoporosis, renal disease, seizures, thyroid disease, other Psychiatric history: anxiety, bipolar, schizophrenia, previous psychiatric hospitalization, other - Past Surgical History Surgical History: cancer surgery, cholecystectomy, hysterectomy, STACIE/BSO, other - Social History Smoking Status: Never smoker Smokeless Tobacco Status: No Alcohol use: none Drug use: none Medications and Allergies Aspirin 325 mg PO DAILY #30 tablet 06/11/15 [Rx] Docusate Sodium [Colace] 100 mg PO BID PRN #60 capsule 06/11/15 [Rx] Loratadine [Claritin] 10 mg PO DAILY #30 tablet 06/11/15 [Rx] Amlodipine Besylate 2.5 mg PO DAILY 01/28/16 [History] Azelastine 0.1% Nasal [place] [Astelin] 2 spray NS HS 01/28/16 [History] Betamethasone/Propylene Glyc [Betamethasone Dp Aug 0.05% Lot] 1 appl TP BID PRN 01/28/16 [History] Calcium Carbonate/Vitamin D3 [Calcium 500-Vit D3 400 Tablet] 1 tab PO BID [History] Divalproex (24 HR) [Depakote ER (24 HR)] 500 mg PO QAM 01/28/16 [History] Levothyroxine Sodium 88 mcg PO DAILY 01/28/16 [History] RisperiDONE [Risperdal] 3 mg PO DAILY 01/28/16 [History] Sodium Chloride [Barren] 2 spray NS Q6H PRN 01/28/16 [History] Acetaminophen [Tylenol] 500 mg PO Q4H PRN 04/05/16 [History] Benztropine Mesylate 1 mg PO BID 04/05/16 [History] Cholecalciferol (Vitamin D3) [Vitamin D3] 1,000 unit PO BID 04/05/16 [History] Cilostazol 100 mg PO BID 04/05/16 [History] Fluvoxamine [Luvox] 200 mg PO QAM 04/05/16 [History] LORazepam [Ativan] 0.5 mg PO BID 04/05/16 [History] Tetrahydrozoline HCl [Visine] 1 drop OP Q4HR PRN 04/05/16 [History] Divalproex (24 HR) [Depakote ER (24 HR)] 1,000 mg PO HS 05/12/16 [History] Allergies No Known Allergies Allergy (Verified 04/02/16 09:18) ROS unobtainable: due to mental status Palliative Care-Exam - Constitutional Vitals: Temp Pulse Resp BP Pulse Ox 98.2 F 81 20 109/66 98 05/15/16 11:45 05/15/16 15:00 05/15/16 15:00 05/15/16 15:00 05/15/16 15:00 General appearance: Present: no acute distress - Head Head Exam: Present: normal inspection, normocephalic - Eye Eye exam: Present: normal appearance, PERRL - Expanded Respiratory Exam Location: rales: Left, Right, Lower - Cardiovascular Cardiovascular exam: Present: +S1, +S2 - GI/Abdominal Exam GI/Abdominal exam: Present: normal bowel sounds, soft - Additional comments: [place] with light yellow urine - Extremities Exam Extremities exam: Present: normal capillary refill, normal inspection - Neurological Exam Neurological exam: Present: alert Additional comments: Oriented to name & place, disoriented to time and situation. Does not follow commands - Skin Skin exam: Present: dry, pallor, warm Internal Medicine - CN: Reslt - Labs CBC & Chem 7: 05/15/16 05:55 05/15/16 04:07 Labs: Short CBC 05/15/16 Range/Units 05:55 WBC 8.1 D (4.3-11.1) K/mcL Hgb 7.7 L (11.5-15.4) g/dL Hct 23.4 L (35.3-44.9) % Plt Count 25 L* (140-400) K/mcL Neutrophils # 6.6 (1.6-8.9) K/mcL BMP 05/15/16 04:07 Sodium 149 H D Potassium 3.8 Chloride 119 H Carbon Dioxide 23 BUN 29 H Creatinine 1.61 H Glucose 76 Calcium 8.9 - ABG Interpretation ABG results: ABG ABG pH 7.54 pH Units (7.32-7.45) H 05/14/16 04:18 ABG pCO2 27 mmHg (35-45) L 05/14/16 04:18 ABG pO2 135 mmHg (85-104) H 05/14/16 04:18 ABG O2 Saturation 99 % (95-98) H 05/14/16 04:18 PT/INR, D-dimer PT 10.8 Seconds (9.4-12.1) 05/12/16 22:00 Consult Discharge Plan - Plan Referrals: NO,PCP [Primary Care Provider] - Palliative Quality Palliative Quality: Screen for Code Status: Yes, Screen for Goals of Care: Yes ( spoke with guardian), Screen for Pain: Yes, If Pain Regimen Started, Initiate Bowel Regimen: NA, Screen for Nausea/Vomitting: Yes Code Status: 05/13/16 01:50 Resuscitation Status: Active [RES] Routine Comment: Resuscitation Status: Full Code
--- NOTE | 2016-05-15 16:43 | Event Note ---
Date of Encounter: 05/15/16 Time of Encounter: 16:10 [employer] returned letter for approval for DNRCC. State form completed and faxed back to central office. Updated ICU staff.
[2016-05-15] MEDS ORDERED: Naloxone 0.4 MG/ML INJ IVP PRN (18:22)
[2016-05-15] MEDS ORDERED: Ondansetron 4 MG/2 ML VIAL IVP PRN (18:22)
[2016-05-15] MEDS ORDERED: Divalproex (24 HR) 500 MG TABLET PO SCH (21:00)
[2016-05-15] MEDS ORDERED: Divalproex (24 HR) 250 MG TABLET PO SCH (22:15)
[2016-05-15] MEDS: *HR* LORazepam 1 MG TABLET PO SCH (22:25)
[2016-05-16] MEDS ORDERED: Pantoprazole 40 MG VIAL IVP SCH ×2 (07:30)
[2016-05-16] MEDS ORDERED: Loratadine 10 MG TABLET PO SCH (09:00)
[2016-05-16] MEDS ORDERED: Aspirin 325 MG TABLET PO SCH (09:00)
[2016-05-16] MEDS ORDERED: Divalproex (24 HR) 500 MG TABLET PO SCH (09:00)
[2016-05-16] MEDS ORDERED: Levothyroxine Sodium 100 MCG VIAL IVP SCH (09:00)
[2016-05-16] MEDS ORDERED: RisperiDAL 3 MG TABLET PO SCH (09:00)
[2016-05-16] MEDS ORDERED: amLODIPine 5 MG TABLET PO SCH (09:00)
[2016-05-16] MEDS: *HR* LORazepam 1 MG TABLET PO SCH (09:30)
--- NOTE | 2016-05-16 09:51 | Palliative Progress Note ---
Date of Encounter: 05/16/16 Time of Encounter: 08:50 - Assessment and plan (1) Generalized pain Current Visit: Yes Status: Acute Assessment and plan: r/t pt mental status, she cannot describe pain, but keeps repeating "maurice bench hurts," and has facial grimacing. Concerned she is having discomfort and cannot express. Will trial low dose Roxanol and she if she appears more comfortable. (2) Dysphagia Current Visit: Yes Status: Chronic Assessment and plan: Struggled with solids this am and was spitting out. Will transition to pureed diet. Comfort feeds. Qualifiers: Dysphagia type: unspecified Qualified Code(s): R13.10 - Dysphagia, unspecified (3) Counseling regarding advanced care planning and goals of care Current Visit: Yes Status: Acute Assessment and plan: Attempting to reach guardian to coordinate discharge back to long term and initiating hospice care. Left message. D/W Dr. Valentin. Referral called to [facility] (4) Aspiration pneumonia Current Visit: Yes Status: Acute Qualifiers: Aspiration pneumonia type: unspecified Laterality: bilateral Lung location: unspecified part of lung Qualified Code(s): J69.0 - Pneumonitis due to inhalation of food and vomit (5) Acute renal failure Current Visit: Yes Status: Acute Qualifiers: Acute renal failure type: unspecified Qualified Code(s): N17.9 - Acute kidney failure, unspecified (6) Acute respiratory failure with hypoxia and hypercapnia Current Visit: Yes Status: Resolved - Time Spent With Patient Total time spent is greater than 50% in coordination of care (as documented) at patient's floor/unit and/or counseling patient: 25 - 35 minutes - Subjective Interval history: Patient awake and alert, facial grimacing noted, she is repeating "Maurice Bench hurts". She does not answer questions appropriately. Appears in slight respiratory distress at present. - Constitutional Vitals: Abnormal lab results RBC 2.48 M/mcL (3.82-4.97) L 05/15/16 05:55 Hgb 7.7 g/dL (11.5-15.4) L 05/15/16 05:55 Hct 23.4 % (35.3-44.9) L 05/15/16 05:55 RDW 15.4 % (11.5-14.5) H 05/15/16 05:55 Plt Count 25 K/mcL (140-400) L* 05/15/16 05:55 MPV 12.7 fL (9.4-12.4) H 05/15/16 05:55 Nucleated RBCs/100 WBC 0.9 /100 WBC (0) H 05/15/16 05:55 Toxic Granulation Present (Not Present) A 05/13/16 11:10 Dohle Bodies Present (Not Present) A 05/13/16 11:10 Platelet Estimate Marked Decrease (Normal) L 05/14/16 04:29 Immature Plt Fraction 18.8 % (1.1-6.1) H 05/14/16 04:29 ABG pH 7.54 pH Units (7.32-7.45) H 05/14/16 04:18 ABG pCO2 27 mmHg (35-45) L 05/14/16 04:18 ABG pO2 135 mmHg (85-104) H 05/14/16 04:18 ABG O2 Saturation 99 % (95-98) H 05/14/16 04:18 Sodium 149 mEq/L (136-145) H D 05/15/16 04:07 Chloride 119 mEq/L (98-109) H 05/15/16 04:07 BUN 29 mg/dL (7-20) H 05/15/16 04:07 Creatinine 1.61 mg/dL (0.57-1.11) H 05/15/16 04:07 Est GFR ( Amer) 39 (> 60) L 05/15/16 04:07 Est GFR (Non-Af Amer) 33 (> 60) L 05/15/16 04:07 Calculated Osmolality 313 (280-300) H 05/15/16 04:07 AST 48 Units/L (5-34) H 05/13/16 11:10 B-Natriuretic Peptide 105 pg/mL (0-100) H 05/13/16 11:10 Serum Total Protein 5.3 g/dL (6.0-8.3) L 05/13/16 11:10 Albumin 2.3 g/dL (3.5-5.0) L 05/13/16 11:10 Albumin/Globulin Ratio 0.8 (1.1-2.2) L 05/13/16 11:10 TSH 5.824 mcIU/mL (0.350-4.840) H 05/13/16 11:10 Urine Blood Moderate (Negative) H 05/12/16 22:20 Urine Microscopic RBC 5-15 per hpf (0-3) H 05/12/16 22:20 Ur Squamous Epith Cells Many per lpf (None-Few) H 05/12/16 22:20 General appearance: Present: no acute distress - Expanded Respiratory Exam Location: rhonchi: Left, Right, Upper, Lower - Cardiovascular Cardiovascular exam: Present: tachycardia - GI/Abdominal GI/Abdominal exam: Present: normal bowel sounds, soft - Extremities Exam Extremities exam: Present: normal capillary refill, normal inspection - Neurological Exam Neurological exam: Present: alert, altered Additional comments: Oriented to name only this am. Does not follow commands. Inappropriate answers to questions. Repeats "maurice bench" frequently Palliative Quality Palliative Quality: Screen for Code Status: Yes, Screen for Goals of Care: Yes ( spoke with guardian), Screen for Pain: Yes, If Pain Regimen Started, Initiate Bowel Regimen: NA, Screen for Nausea/Vomitting: Yes Code Status: 05/13/16 01:50 Resuscitation Status: Active [RES] Routine Comment: Resuscitation Status: Full Code 05/15/16 16:41 DNR [Resuscitation Status: Active] [RES] Routine Comment: Resuscitation Status: DNR-Comfort Care - Labs CBC & Chem 7: 05/15/16 05:55 05/15/16 04:07 Labs: Laboratory Results - last 24 hr 05/15/16 05/15/16 05/15/16 05:46 06:50 11:27 POC Glucose 65 81 69 05/15/16 21:09 POC Glucose 75 - ABG Interpretation ABG results: ABG ABG pH 7.54 pH Units (7.32-7.45) H 05/14/16 04:18 ABG pCO2 27 mmHg (35-45) L 05/14/16 04:18 ABG pO2 135 mmHg (85-104) H 05/14/16 04:18 ABG O2 Saturation 99 % (95-98) H 05/14/16 04:18 PT/INR, D-dimer PT 10.8 Seconds (9.4-12.1) 05/12/16 22:00 Consult Discharge Plan - Plan Referrals: NO,PCP [Primary Care Provider] -
[2016-05-16] MEDS ORDERED: Morphine Oral CONC 5 MG/0.25 ML ORAL.SYG PO PRN (10:04)
[2016-05-16 11:45] VITALS: BP 122/70
--- NOTE | 2016-05-16 13:07 | Event Note ---
Date of Encounter: 05/16/16 Time of Encounter: 13:05 Spoke with guardian - pt can return to previous care home on [address] [facility] will be setting up oxygen and enrolling her there. Notified Dr. Valentin.
--- NOTE | 2016-05-16 14:59 | Discharge Summary ---
Date of Encounter: 05/16/16 Time of Encounter: 14:55 - Discharge Diagnosis (1) Aspiration pneumonia Priority: Primary Status: Acute Qualifiers: Aspiration pneumonia type: unspecified Laterality: bilateral Lung location: unspecified part of lung Qualified Code(s): J69.0 - Pneumonitis due to inhalation of food and vomit (2) Hypothyroidism Priority: Secondary Status: Chronic Qualifiers: Hypothyroidism type: acquired Qualified Code(s): E03.9 - Hypothyroidism, unspecified (3) Acute respiratory failure with hypoxia and hypercapnia Priority: Primary Status: Resolved (4) Encephalopathy Priority: Primary Status: Resolved (5) Septic shock Priority: Primary Status: Resolved (6) Bipolar disorder Priority: Secondary Status: Chronic Qualifiers: Active/Remission status: remission status unspecified Qualified Code(s): F31.9 - Bipolar disorder, unspecified (7) Cognitive developmental delay Priority: Secondary Status: Chronic (8) Mental retardation Priority: Secondary Status: Chronic (9) Pancytopenia Priority: Secondary Status: Chronic (10) Schizophrenia Priority: Secondary Status: Chronic Qualifiers: Schizophrenia type: undifferentiated schizophrenia Qualified Code(s): F20.3 - Undifferentiated schizophrenia - Discharge Medications Prescriptions: Morphine Oral CONC [Roxanol] 2.5 - 5 mg PO Q4HR PRN #30 oral.syg PRN Reason: pain/dyspnea Atropine 1% Opth Drops 4 drop SL Q1-2H PRN #1 bottle PRN Reason: Upper airway secretions Haloperidol Oral Conc [Haldol] 2 mg PO Q6H PRN #30 mls PRN Reason: Agitation LORazepam Oral Conc [Ativan Oral Conc] 1 mg PO Q4H PRN #30 mls PRN Reason: Anxiety LevETIRAcetam [Keppra Oral Soln] 750 mg PO BID 28 Days Home Medications: Docusate Sodium [Colace] 100 mg PO BID PRN #60 capsule 06/11/15 [Rx] Loratadine [Claritin] 10 mg PO DAILY #30 tablet 06/11/15 [Rx] Azelastine 0.1% Nasal [place] [Astelin] 2 spray NS HS 01/28/16 [History] Betamethasone/Propylene Glyc [Betamethasone Dp Aug 0.05% Lot] 1 appl TP BID PRN 01/28/16 [History] Levothyroxine Sodium 88 mcg PO DAILY 01/28/16 [History] RisperiDONE [Risperdal] 3 mg PO DAILY 01/28/16 [History] Sodium Chloride [Loris] 2 spray NS Q6H PRN 01/28/16 [History] Acetaminophen [Tylenol] 500 mg PO Q4H PRN 04/05/16 [History] Benztropine Mesylate 1 mg PO BID 04/05/16 [History] Fluvoxamine [Luvox] 200 mg PO QAM 04/05/16 [History] Tetrahydrozoline HCl [Visine] 1 drop OP Q4HR PRN 04/05/16 [History] Atropine 1% Opth Drops 4 drop SL Q1-2H PRN #1 bottle 05/16/16 [Rx] Haloperidol Oral Conc [Haldol] 2 mg PO Q6H PRN #30 mls 05/16/16 [Rx] LORazepam Oral Conc [Ativan Oral Conc] 1 mg PO Q4H PRN #30 mls 05/16/16 [Rx] LevETIRAcetam [Keppra Oral Soln] 750 mg PO BID 28 Days 05/16/16 [Rx] Morphine Oral CONC [Roxanol] 2.5 - 5 mg PO Q4HR PRN #30 oral.syg 05/16/16 [Rx] Allergies/Adverse Reactions: Allergies No Known Allergies Allergy (Verified 04/02/16 09:18) Procedures/tests Complete & Pending: Procedures Performed prior 72 hours Category Date Time Status EKG [ECG 12 lead ECG] [ECG] AM 0600 Y 05/15/16 06:00 Stop Req Date of admission: 05/13/16 00:15 Primary care physician: PCP NO Consults: 05/13/16 07:20 Consult to Critical Care [CONS] Routine Consulting Provider: Pulm Crit [facility] Reason for Consult: sepsis, pneumonia, vent management Call Completed: No Discharging clinician: Anju Valentin Anticipated date of discharge: 05/16/16 - Patient Status Disposition: Transfer Other Condition: Critical Functional capacity at discharge: bed bound Overall status at discharge: patient is not back to baseline - Discharge Instructions Follow Up With: NO,PCP [Primary Care Provider] - Additional Instructions: F[facility]up with [facility] - Diet and Activity Activity: resume usual activities as tolerated Diet: other (pureed diet with honey thick liquids) Hospital course: Ms. Lane is a 60 year old female with history of developmental delay, mental retardation and multiple medical problems was initially admitted with septic shock from possible aspiration pneumonia and respiratory failure. She was admitted to ICU, underwent intubation and placed on mechanical ventilation along with vasopressor support, IV hydration and broad-spectrum IV antibiotics. Her clinical condition gradually improved and she was able to be weaned off ventilator and saturating well on nasal cannula. However she was deemed unsafe for oral diet due to high risk of aspiration given her mental status. She is not a candidate for PEG tube placement given her poor baseline mental and functional status. Palliative care team has been involved and after discussing with patient's legal guardian, it has been decided today for PEG tube placement and place patient on comfort care measures. She is currently at her baseline mental status with poor appetite and poor oral intake. She is otherwise stable for discharge back to her [facility] under hospice care. Her CODE STATUS has been changed to DNR comfort care. - Time Spent with Patient Total time spent providing and/or coordinating discharge services: Greater than 30 minutes (50 min) - Constitutional Vitals: Temp Pulse Resp BP Pulse Ox 99.6 F 60 18 122/70 94 L 05/16/16 11:43 05/16/16 11:43 05/16/16 11:43 05/16/16 11:43 05/16/16 11:43 General appearance: Present: A&O X 0 (at baseline, answers her name but cannot answer most of my questions), mild distress - Respiratory Respiratory exam: Present: CTAB (B/L coarse breath sounds ). Absent: accessory muscle use, rales, rhonchi, wheezes - Cardiovascular Cardiovascular exam: Present: RRR, +S1, +S2. Absent: diastolic murmur, gallop, rubs, systolic murmur - VTE Documentation of Mechanical Device: Intermittent pneumatic compression device
== END 2016-05-16 17:00 | disposition other institution (70) | DRG 871 ==
LOC: EMEROO 21:27 → SUATTDRO 05-13 00:15 → ICNU 05-13 00:15 → 2ANU 05-15 19:33
PROVIDERS: ADMIT Family Medicine; ATTEND Internal Medicine

== ENCOUNTER 2019-04-01 20:20 | Inpatient (IN) ==
[2019-04-01] MEDS ORDERED: Isovue-370 500 ML BOTTLE IVP ONE (21:24)
[2019-04-01] MEDS ORDERED: Ondansetron 4 MG/2 ML VIAL IVP ONE (21:25)
[2019-04-01 22:19] LABS: Bilirubin,Urine Small (Negative); Blood,Urine Negative (Negative); Clarity,Urine Clear (Clear); Color,Urine Dark Yellow (Yellow); Glucose,Urine (UA) Normal (Normal); Ketones,Urine Trace mg/dL (Negative); Leukocyte Esterase,Urine Negative (Negative); Nitrite,Urine Negative (Negative); Protein,Urine Trace mg/dL (Neg-Trace); Specific Gravity,Urine 1.028 (1.010-1.025); Urobilinogen,Urine Normal (Normal)
[2019-04-01 22:40] LABS: Basophils % 0.4 %; Eosinophils # 0.1 K/mcL (0.0-0.6); Hematocrit 40.3 % (35.3-44.9); Hemoglobin 13.5 g/dL (11.5-15.4); Lymphocytes % 20.1 %; Mean Corpuscular HGB Conc 33.5 g/dL (31.6-35.5); Mean Corpuscular Hemoglobin 30.6 pg (28.0-33.3); Mean Corpuscular Volume 91.4 fL (83.0-100.0); Mean Platelet Volume 10.6 fL (9.4-12.4); Monocytes # 0.8 K/mcL (0.0-1.3); Monocytes % 15.6 %; Neutrophils # 3.1 K/mcL (1.6-8.9); Platelet Count 209 K/mcL (140-400); Red Blood Count 4.41 M/mcL (3.82-4.97); Red Cell Distribution Width 12.5 % (11.5-14.5); Segmented Neutrophils % 60.9 %; White Blood Count 5.1 K/mcL (4.3-11.1)
[2019-04-01 23:01] LABS: Platelet Estimate Normal (Normal)
[2019-04-01 23:03] LABS: Albumin 3.8 g/dL (3.5-5.7); Albumin/Globulin Ratio 1.4 (1.1-2.2); Bilirubin,Total 0.4 mg/dL (0.3-1.0); Globulin 2.8 g/dL (2.4-3.5); Potassium 3.6 mEq/L (3.5-5.1); Total Protein 6.6 g/dL (6.4-8.9)
[2019-04-02] MEDS ORDERED: Saline Nasal Spray 44 ML BOTTLE NS PRN (02:08)
[2019-04-02] MEDS ORDERED: Ondansetron 4 MG/2 ML VIAL IVP PRN (02:12)
[2019-04-02] MEDS ORDERED: Potassium Chloride 40 MEQ in D5% in 0.45% NACL 1,000 ML IVC SCH (02:45)
[2019-04-02 05:21] LABS: INR 1.2; Prothrombin Time 13.4 Seconds (9.4-12.1)
[2019-04-02 05:24] LABS: Activated Partial Thrombo Time 31.4 Seconds (26.0-36.0); Calcium 9.4 mg/dL (8.6-10.3); Magnesium 2.2 mg/dL (1.6-2.6); Phosphorous 2.9 mg/dL (2.7-4.5); Potassium 3.7 mEq/L (3.5-5.1)
[2019-04-02] MEDS: *HR* Heparin 5,000 UNIT/ML VIAL SQ SCH ×2 (06:01→16:57)
[2019-04-02] MEDS: *HR* Promethazine 25 MG/ML VIAL IVP PRN (06:17)
[2019-04-02] MEDS ORDERED: NON-FORMULARY MEDICATION 1 EACH EACH (Multivitamin [One Daily Essential] 1 EACH) PO SCH (09:00)
[2019-04-02] MEDS ORDERED: *HR* LORazepam 0.5 MG TABLET PO SCH (09:00)
[2019-04-02] MEDS ORDERED: LURASIDONE HCL 60 MG PO SCH (09:00)
[2019-04-02] MEDS ORDERED: levETIRAcetam 500 MG/5 ML UDC PO SCH (09:00)
[2019-04-02] MEDS ORDERED: Loratadine 10 MG TABLET PO SCH (09:00)
[2019-04-02] MEDS: Potassium Chloride 40 MEQ in D5% in 0.9% NACL 1,000 ML IVC SCH (16:35)
[2019-04-02] MEDS: Bisacodyl 10 MG RECTAL SUPPOSITORY RC SCH (20:16)
[2019-04-02] MEDS: levETIRAcetam 500 MG/5 ML UDC PO SCH (20:16)
[2019-04-02] MEDS: Azelastine 0.1% Nasal Spray 30 ML BOTTLE NS SCH (20:18)
[2019-04-02] MEDS: *HR* HYDROmorphone (PF) 1 MG/ML SYRINGE IVP PRN (20:19)
[2019-04-03 05:23] LABS: Basophils % 0.5 %; Eosinophils # 0.1 K/mcL (0.0-0.6); Eosinophils % 1.3 %; Hematocrit 36.4 % (35.3-44.9); Immature Granulocytes % 1.8 % (0-4); Lymphocytes % 17.1 %; Mean Corpuscular HGB Conc 31.6 g/dL (31.6-35.5); Mean Corpuscular Hemoglobin 30.7 pg (28.0-33.3); Mean Corpuscular Volume 97.1 fL (83.0-100.0); Mean Platelet Volume 11.4 fL (9.4-12.4); Monocytes # 0.8 K/mcL (0.0-1.3); Nucleated Red Blood Cells 0.3 /100 WBC (0); Platelet Count 173 K/mcL (140-400); Red Blood Count 3.75 M/mcL (3.82-4.97); Red Cell Distribution Width 12.4 % (11.5-14.5); Segmented Neutrophils % 66.3 %; White Blood Count 6.1 K/mcL (4.3-11.1)
[2019-04-03 05:24] LABS: Hemoglobin 11.5 g/dL (11.5-15.4)
[2019-04-03 05:39] LABS: BUN/Creatinine Ratio 21 (6-26); Blood Urea Nitrogen 18 mg/dL (8-23); Calcium 8.4 mg/dL (8.6-10.3); Carbon Dioxide 31 mEq/L (23-29); Chloride 108 mEq/L (98-107); Glucose 129 mg/dL (70-105); Osmolality,Calculated 300 (280-300); Potassium 4.5 mEq/L (3.5-5.1); Sodium 143 mEq/L (136-145); eGFR For African Americans > 60 (> 60); eGFR For Non-African Americans > 60 (> 60)
[2019-04-03] MEDS: Potassium Chloride 40 MEQ in D5% in 0.9% NACL 1,000 ML IVC SCH (05:45)
[2019-04-03] MEDS: *HR* Heparin 5,000 UNIT/ML VIAL SQ SCH ×2 (05:46→17:29)
[2019-04-03] MEDS: levETIRAcetam 500 MG/5 ML UDC PO SCH ×2 (09:51→22:00)
[2019-04-03] MEDS: Bisacodyl 10 MG RECTAL SUPPOSITORY RC SCH ×2 (09:51→22:01)
[2019-04-03] MEDS: *HR* LORazepam 0.5 MG TABLET PO SCH ×2 (17:18→22:00)
[2019-04-03] MEDS: *HR* HYDROmorphone (PF) 1 MG/ML SYRINGE IVP PRN (19:12)
[2019-04-03] MEDS: Azelastine 0.1% Nasal Spray 30 ML BOTTLE NS SCH (22:01)
[2019-04-04] MEDS ORDERED: Haloperidol Lactate 5 MG/ML VIAL IVP ONE (00:38)
[2019-04-04] MEDS ORDERED: *HR* Promethazine 25 MG/ML VIAL IVP ONE (00:41)
[2019-04-04 00:56] LABS: Hematocrit 36.6 % (35.3-44.9); Hemoglobin 11.7 g/dL (11.5-15.4); Mean Corpuscular Hemoglobin 30.8 pg (28.0-33.3); Mean Corpuscular Volume 96.3 fL (83.0-100.0); Mean Platelet Volume 10.6 fL (9.4-12.4); Platelet Count 160 K/mcL (140-400); Red Cell Distribution Width 12.4 % (11.5-14.5); White Blood Count 8.6 K/mcL (4.3-11.1)
[2019-04-04 01:15] LABS: BUN/Creatinine Ratio 23 (6-26); Blood Urea Nitrogen 16 mg/dL (8-23); Calcium 8.9 mg/dL (8.6-10.3); Carbon Dioxide 25 mEq/L (23-29); Chloride 106 mEq/L (98-107); Glucose 99 mg/dL (70-105); Magnesium 1.9 mg/dL (1.6-2.6); Osmolality,Calculated 291 (280-300); Potassium 4.1 mEq/L (3.5-5.1); Sodium 140 mEq/L (136-145); eGFR For African Americans > 60 (> 60); eGFR For Non-African Americans > 60 (> 60)
[2019-04-04] MEDS: *HR* Heparin 5,000 UNIT/ML VIAL SQ SCH ×2 (05:57→17:43)
[2019-04-04] MEDS ORDERED: Acetaminophen 325 MG TABLET PO PRN (08:00)
[2019-04-04] MEDS: levETIRAcetam 500 MG/5 ML UDC PO SCH ×2 (08:35→19:50)
[2019-04-04] MEDS: Bisacodyl 10 MG RECTAL SUPPOSITORY RC SCH ×2 (08:35→19:51)
[2019-04-04] MEDS: *HR* LORazepam 0.5 MG TABLET PO SCH ×3 (08:35→19:51)
[2019-04-04] MEDS: Lurasidone 20 MG TABLET PO SCH (11:32)
[2019-04-04] MEDS ORDERED: Ringers Solution, Lactated 1,000 ML IVC ONE (12:55)
[2019-04-04 14:28] LABS: Bilirubin,Urine Moderate (Negative); Blood,Urine Large (Negative); Clarity,Urine Cloudy (Clear); Color,Urine Dark Yellow (Yellow); Glucose,Urine (UA) Normal (Normal); Ketones,Urine 80 mg/dL (Negative); Leukocyte Esterase,Urine Trace (Negative); Nitrite,Urine Negative (Negative); PH,Urine 5.5 pH Units (5.0-8.0); Protein,Urine 100 mg/dL (Neg-Trace); Specific Gravity,Urine > 1.030 (1.010-1.025); Urobilinogen,Urine Normal (Normal)
[2019-04-04 14:30] LABS: Bacteria,Urine None Seen per hpf (None-Few); RBC,Urine TNTC per hpf (0-3); Squamous Epithelial Cell,Urine Many per lpf (None-Few); WBC,Urine 15-30 per hpf (0-3)
[2019-04-04 15:36] LABS: Mucus,Urine Many (Few)
[2019-04-04 15:37] LABS: Renal Epithelial Cells,Urine Few per hpf (None-Few)
[2019-04-04] MEDS: cefTRIAXone 2,000 MG in Water for inj. (sterile) 20 ML IVP SCH (19:50)
[2019-04-04] MEDS: Azelastine 0.1% Nasal Spray 30 ML BOTTLE NS SCH (19:52)
[2019-04-05] MEDS: *HR* Heparin 5,000 UNIT/ML VIAL SQ SCH ×2 (05:34→17:08)
[2019-04-05 05:59] LABS: Hematocrit 33.9 % (35.3-44.9); Hemoglobin 11.3 g/dL (11.5-15.4); Mean Corpuscular HGB Conc 33.3 g/dL (31.6-35.5); Mean Corpuscular Hemoglobin 30.6 pg (28.0-33.3); Mean Corpuscular Volume 91.9 fL (83.0-100.0); Mean Platelet Volume 10.8 fL (9.4-12.4); Platelet Count 198 K/mcL (140-400); Red Blood Count 3.69 M/mcL (3.82-4.97); Red Cell Distribution Width 12.3 % (11.5-14.5); White Blood Count 8.2 K/mcL (4.3-11.1)
[2019-04-05 06:16] LABS: BUN/Creatinine Ratio 29 (6-26); Blood Urea Nitrogen 19 mg/dL (8-23); Calcium 8.3 mg/dL (8.6-10.3); Carbon Dioxide 26 mEq/L (23-29); Chloride 104 mEq/L (98-107); Glucose 80 mg/dL (70-105); Osmolality,Calculated 295 (280-300); Potassium 3.7 mEq/L (3.5-5.1); Sodium 142 mEq/L (136-145); eGFR For African Americans > 60 (> 60); eGFR For Non-African Americans > 60 (> 60)
[2019-04-05] MEDS: Bisacodyl 10 MG RECTAL SUPPOSITORY RC SCH ×2 (08:15→21:26)
[2019-04-05] MEDS: *HR* LORazepam 0.5 MG TABLET PO SCH ×3 (08:15→21:25)
[2019-04-05] MEDS: levETIRAcetam 500 MG/5 ML UDC PO SCH ×2 (08:15→21:26)
[2019-04-05] MEDS: Lurasidone 20 MG TABLET PO SCH (08:15)
[2019-04-05] MEDS: *HR* Promethazine 25 MG/ML VIAL IVP PRN ×3 (11:45→22:16)
[2019-04-05] MEDS: Divalproex (24 HR) 500 MG TABLET PO SCH (15:45)
[2019-04-05] MEDS: cefTRIAXone 2,000 MG in Water for inj. (sterile) 20 ML IVP SCH (17:07)
[2019-04-05] MEDS: Azelastine 0.1% Nasal Spray 30 ML BOTTLE NS SCH (21:26)
[2019-04-05] MEDS ORDERED: Haloperidol Lactate 5 MG/ML VIAL IVP ONE (23:50)
[2019-04-06] MEDS: *HR* Heparin 5,000 UNIT/ML VIAL SQ SCH (06:34)
[2019-04-06 08:47] VITALS: BP 103/64
[2019-04-06] MEDS: Divalproex (24 HR) 500 MG TABLET PO SCH (10:09)
[2019-04-06] MEDS: *HR* LORazepam 0.5 MG TABLET PO SCH ×2 (10:09→13:34)
[2019-04-06] MEDS: Bisacodyl 10 MG RECTAL SUPPOSITORY RC SCH (10:10)
[2019-04-06] MEDS: levETIRAcetam 500 MG/5 ML UDC PO SCH (10:10)
== END 2019-04-06 14:24 | disposition home or self-care (01) | DRG 389 ==
LOC: 3ANU 20:20 → EMEROOARM 20:20 → SUATTDRO 04-02 01:04 → 3ANU 04-02 01:33 → SUATTDRO 04-02 17:52
PROVIDERS: ADMIT Internal Medicine; ATTEND Internal Medicine

== ENCOUNTER 2019-04-22 15:30 | Observation (INO) ==
[2019-04-22 17:42] LABS: Basophils % 0.2 %; Eosinophils # 0.2 K/mcL (0.0-0.6); Eosinophils % 3.7 %; Hematocrit 38.6 % (35.3-44.9); Hemoglobin 12.6 g/dL (11.5-15.4); Immature Granulocytes % 0.4 % (0-4); Lymphocytes # 1.1 K/mcL (0.6-4.6); Lymphocytes % 22.6 %; Mean Corpuscular HGB Conc 32.6 g/dL (31.6-35.5); Mean Corpuscular Hemoglobin 30.9 pg (28.0-33.3); Mean Corpuscular Volume 94.6 fL (83.0-100.0); Mean Platelet Volume 10.8 fL (9.4-12.4); Monocytes # 0.6 K/mcL (0.0-1.3); Monocytes % 12.1 %; Platelet Count 183 K/mcL (140-400); Red Blood Count 4.08 M/mcL (3.82-4.97); White Blood Count 4.9 K/mcL (4.3-11.1)
[2019-04-22] MEDS ORDERED: 0.9 % Sodium Chloride 1,000 ML IVC ONE (17:57)
[2019-04-22] MEDS ORDERED: Ondansetron 4 MG/2 ML VIAL IVP ONE (17:57)
[2019-04-22 18:07] LABS: Alanine Aminotransferase 17 Units/L (7-52); Albumin 3.7 g/dL (3.5-5.7); Albumin/Globulin Ratio 1.4 (1.1-2.2); Alkaline Phosphatase 107 Units/L (34-104); Aspartate Amino Transferase 31 Units/L (13-39); BUN/Creatinine Ratio 26 (6-26); Bilirubin,Direct 0.1 mg/dL (0.0-0.2); Bilirubin,Indirect 0.3 mg/dL (0.0-1.0); Bilirubin,Total 0.4 mg/dL (0.3-1.0); Blood Urea Nitrogen 24 mg/dL (8-23); Carbon Dioxide 28 mEq/L (23-29); Chloride 107 mEq/L (98-107); Globulin 2.7 g/dL (2.4-3.5); Glucose 132 mg/dL (70-105); Lipase 203 Units/L (11-82); Osmolality,Calculated 298 (280-300); Potassium 3.9 mEq/L (3.5-5.1); Sodium 141 mEq/L (136-145); Total Protein 6.4 g/dL (6.4-8.9); eGFR For African Americans > 60 (> 60); eGFR For Non-African Americans > 60 (> 60)
[2019-04-22 19:24] LABS: Bilirubin,Urine Small (Negative); Blood,Urine Negative (Negative); Clarity,Urine Clear (Clear); Color,Urine Dark Yellow (Yellow); Glucose,Urine (UA) Normal (Normal); Ketones,Urine Trace mg/dL (Negative); Leukocyte Esterase,Urine Small (Negative); Nitrite,Urine Negative (Negative); Protein,Urine Trace mg/dL (Neg-Trace); Specific Gravity,Urine > 1.030 (1.010-1.025); Urobilinogen,Urine Normal (Normal)
[2019-04-22 19:25] LABS: Bacteria,Urine None Seen per hpf (None-Few); Hyaline Casts,Urine None Seen per lpf (None-Few); Squamous Epithelial Cell,Urine Many per lpf (None-Few); WBC,Urine 0-3 per hpf (0-3)
[2019-04-22 20:02] LABS: RBC,Urine 0-3 per hpf (0-3)
[2019-04-22 21:44] LABS: Cholesterol 105 mg/dL (< 200); HDL Cholesterol 35 mg/dL (40-59); LDL Cholesterol,Calculated 48 mg/dL (0-99); Triglycerides 109 mg/dL (< 150)
[2019-04-22] MEDS ORDERED: levETIRAcetam 500 MG/5 ML UDC PO SCH (21:57)
[2019-04-22] MEDS ORDERED: Naloxone 0.4 MG/ML INJ IVP PRN (22:03)
[2019-04-22] MEDS ORDERED: 0.9 % Sodium Chloride 1,000 ML IVC SCH (22:15)
[2019-04-22] MEDS: levETIRAcetam 750 MG in 0.9 % Sodium Chloride 100 ML IVPB SCH (22:59)
[2019-04-22] MEDS: *HR* LORazepam 0.5 MG TABLET PO SCH (23:22)
[2019-04-23] MEDS: *HR* Heparin 5,000 UNIT/ML VIAL SQ SCH ×2 (05:56→17:36)
[2019-04-23] MEDS ORDERED: Levothyroxine Sodium 100 MCG VIAL IVP SCH (06:30)
[2019-04-23] MEDS: *HR* LORazepam 0.5 MG TABLET PO SCH ×4 (08:04→21:00)
[2019-04-23] MEDS ORDERED: Bisacodyl 10 MG RECTAL SUPPOSITORY RC ONE (08:42)
[2019-04-23] MEDS ORDERED: Divalproex (24 HR) 500 MG TABLET PO SCH (09:00)
[2019-04-23] MEDS ORDERED: Valproic Acid INJ 250 MG in 0.9 % Sodium Chloride 100 ML IVPB SCH (09:00)
[2019-04-23] MEDS: levETIRAcetam 750 MG in 0.9 % Sodium Chloride 100 ML IVPB SCH (09:03)
[2019-04-23] MEDS: Sennosides 8.6 MG TABLET PO SCH (11:06)
[2019-04-23 16:39] LABS: Basophils % 0.3 %; Eosinophils # 0.2 K/mcL (0.0-0.6); Eosinophils % 4.9 %; Hematocrit 34.7 % (35.3-44.9); Hemoglobin 11.4 g/dL (11.5-15.4); Immature Granulocytes % 0.3 % (0-4); Lymphocytes # 0.8 K/mcL (0.6-4.6); Lymphocytes % 21.6 %; Mean Corpuscular HGB Conc 32.9 g/dL (31.6-35.5); Mean Corpuscular Volume 94.3 fL (83.0-100.0); Mean Platelet Volume 10.7 fL (9.4-12.4); Monocytes # 0.5 K/mcL (0.0-1.3); Monocytes % 12.3 %; Neutrophils # 2.2 K/mcL (1.6-8.9); Platelet Count 140 K/mcL (140-400); Red Blood Count 3.68 M/mcL (3.82-4.97); Red Cell Distribution Width 12.7 % (11.5-14.5); Segmented Neutrophils % 60.6 %; White Blood Count 3.7 K/mcL (4.3-11.1)
[2019-04-23 16:44] LABS: INR 1.1
[2019-04-23 16:58] LABS: Alanine Aminotransferase 14 Units/L (7-52); Albumin 3.3 g/dL (3.5-5.7); Albumin/Globulin Ratio 1.4 (1.1-2.2); Alkaline Phosphatase 93 Units/L (34-104); Aspartate Amino Transferase 18 Units/L (13-39); BUN/Creatinine Ratio 13 (6-26); Bilirubin,Total 0.3 mg/dL (0.3-1.0); Blood Urea Nitrogen 9 mg/dL (8-23); Calcium 8.2 mg/dL (8.6-10.3); Carbon Dioxide 25 mEq/L (23-29); Chloride 111 mEq/L (98-107); Chol/HDL Ratio 3.1 (0-4.9); Cholesterol 86 mg/dL (< 200); Globulin 2.3 g/dL (2.4-3.5); Glucose 90 mg/dL (70-105); HDL Cholesterol 28 mg/dL (40-59); LDL Cholesterol,Calculated 37 mg/dL (0-99); Magnesium 1.6 mg/dL (1.6-2.6); Osmolality,Calculated 288 (280-300); Phosphorous 1.7 mg/dL (2.7-4.5); Potassium 3.9 mEq/L (3.5-5.1); Sodium 140 mEq/L (136-145); Total Protein 5.6 g/dL (6.4-8.9); Triglycerides 103 mg/dL (< 150); eGFR For African Americans > 60 (> 60); eGFR For Non-African Americans > 60 (> 60)
[2019-04-23] MEDS: levETIRAcetam 500 MG/5 ML UDC PO SCH (21:00)
[2019-04-24 03:26] LABS: Basophils % 0.3 %; Eosinophils # 0.2 K/mcL (0.0-0.6); Eosinophils % 4.9 %; Hematocrit 32.7 % (35.3-44.9); Hemoglobin 10.4 g/dL (11.5-15.4); Immature Granulocytes % 0.5 % (0-4); Lymphocytes % 25.7 %; Mean Corpuscular HGB Conc 31.8 g/dL (31.6-35.5); Mean Corpuscular Volume 97.6 fL (83.0-100.0); Mean Platelet Volume 11.8 fL (9.4-12.4); Monocytes # 0.4 K/mcL (0.0-1.3); Monocytes % 11.2 %; Neutrophils # 2.2 K/mcL (1.6-8.9); Platelet Count 135 K/mcL (140-400); Red Blood Count 3.35 M/mcL (3.82-4.97); Red Cell Distribution Width 12.8 % (11.5-14.5); Segmented Neutrophils % 57.4 %; White Blood Count 3.9 K/mcL (4.3-11.1)
[2019-04-24 03:44] LABS: Alanine Aminotransferase 13 Units/L (7-52); Albumin 3.2 g/dL (3.5-5.7); Albumin/Globulin Ratio 1.3 (1.1-2.2); Alkaline Phosphatase 86 Units/L (34-104); Aspartate Amino Transferase 14 Units/L (13-39); BUN/Creatinine Ratio 10 (6-26); Bilirubin,Total 0.3 mg/dL (0.3-1.0); Blood Urea Nitrogen 7 mg/dL (8-23); Calcium 8.2 mg/dL (8.6-10.3); Carbon Dioxide 28 mEq/L (23-29); Chloride 107 mEq/L (98-107); Globulin 2.4 g/dL (2.4-3.5); Glucose 93 mg/dL (70-105); Lipase 23 Units/L (11-82); Osmolality,Calculated 294 (280-300); Potassium 3.2 mEq/L (3.5-5.1); Sodium 143 mEq/L (136-145); Total Protein 5.6 g/dL (6.4-8.9); eGFR For African Americans > 60 (> 60); eGFR For Non-African Americans > 60 (> 60)
[2019-04-24] MEDS: *HR* Heparin 5,000 UNIT/ML VIAL SQ SCH (05:26)
[2019-04-24 06:36] VITALS: BP 111/67
[2019-04-24] MEDS: levETIRAcetam 500 MG/5 ML UDC PO SCH (08:52)
[2019-04-24] MEDS: Sennosides 8.6 MG TABLET PO SCH (08:53)
[2019-04-24] MEDS: *HR* LORazepam 0.5 MG TABLET PO SCH ×2 (08:53→12:48)
[2019-04-24] MEDS ORDERED: Divalproex (24 HR) 500 MG TABLET PO SCH (09:00)
== END 2019-04-24 16:10 | disposition home or self-care (01) ==
LOC: EMEROOARM 15:30 → 3ANU 15:30 → SUATTDRO 20:56 → 3ANU 21:37
PROVIDERS: ADMIT Family Medicine; ATTEND Internal Medicine

== ENCOUNTER 2020-06-27 14:51 | Inpatient (IN) ==
[2020-06-27] MEDS ORDERED: Isovue-370 500 ML BOTTLE IVP ONE (15:35)
[2020-06-27] MEDS ORDERED: 0.9 % Sodium Chloride 1,000 ML IV ONE (15:37)
[2020-06-27 16:02] LABS: Hematocrit 40.9 % (35.3-44.9); Hemoglobin 12.8 g/dL (11.5-15.4); Mean Corpuscular HGB Conc 31.3 g/dL (31.6-35.5); Mean Corpuscular Hemoglobin 30.2 pg (28.0-33.3); Mean Corpuscular Volume 96.5 fL (83.0-100.0); Mean Platelet Volume 10.5 fL (9.4-12.4); Platelet Count 178 K/mcL (140-400); Red Blood Count 4.24 M/mcL (3.82-4.97); Red Cell Distribution Width 12.3 % (11.5-14.5); White Blood Count 6.5 K/mcL (4.3-11.1)
[2020-06-27 16:12] LABS: INR 1.1; Prothrombin Time 12.2 Seconds (9.4-12.1)
[2020-06-27 16:27] LABS: Lymphocytes # 0.7 K/mcL (0.6-4.6); Monocytes # 0.3 K/mcL (0.0-1.3); Neutrophils # 5.6 K/mcL (1.6-8.9)
[2020-06-27 16:30] LABS: Amphetamine Screen,Urine Negative ng/mL (Cutoff=1000); Barbiturate Screen,Urine Negative ng/mL (Cutoff=200); Benzodiazepines Screen,Urine Negative ng/mL (Cutoff=200); Cannabinoid Screen,Urine Negative ng/mL (Cutoff = 50); Cocaine Screen,Urine Negative ng/mL (Cutoff= 300); Opiate Screen,Urine Negative ng/mL (Cutoff=300); Phencyclidine Screen,Urine Negative ng/mL (Cutoff=25)
[2020-06-27 16:45] LABS: Bilirubin,Urine Negative (Negative); Blood,Urine Negative (Negative); Clarity,Urine Clear (Clear); Color,Urine Yellow (Yellow); Glucose,Urine (UA) Normal (Normal); Ketones,Urine Trace mg/dL (Negative); Leukocyte Esterase,Urine Negative (Negative); Nitrite,Urine Negative (Negative); Protein,Urine 30 mg/dL (Neg-Trace); Specific Gravity,Urine 1.021 (1.010-1.025); Urobilinogen,Urine Normal (Normal)
[2020-06-27 16:48] LABS: Bacteria,Urine Few per hpf (None-Few); WBC,Urine 0-3 per hpf (0-3)
[2020-06-27 16:58] LABS: Alanine Aminotransferase 8 Units/L (7-52); Albumin/Globulin Ratio 1.3 (1.1-2.2); Alkaline Phosphatase 82 Units/L (34-104); Aspartate Amino Transferase 16 Units/L (13-39); BUN/Creatinine Ratio 25 (6-26); Bilirubin,Direct 0.2 mg/dL (0.0-0.2); Bilirubin,Indirect 0.3 mg/dL (0.0-1.0); Bilirubin,Total 0.5 mg/dL (0.3-1.0); Blood Urea Nitrogen 25 mg/dL (8-23); Calcium 9.4 mg/dL (8.6-10.3); Carbon Dioxide 23 mEq/L (23-29); Chloride 103 mEq/L (98-107); Ethanol < 10 mg/dL (Less than 10); Glucose 158 mg/dL (70-105); Osmolality,Calculated 298 (280-300); Sodium 140 mEq/L (136-145); eGFR For African Americans > 60 (> 60); eGFR For Non-African Americans 54 (> 60)
[2020-06-27 17:03] LABS: Troponin I < 0.03 ng/mL (< 0.04)
[2020-06-27] MEDS ORDERED: Naloxone 0.4 MG/ML INJ IVP PRN (20:06)
[2020-06-27] MEDS ORDERED: Ondansetron 4 MG/2 ML VIAL IVP PRN (20:06)
[2020-06-27] MEDS ORDERED: Ringers Solution, Lactated 1,000 ML IVC SCH (20:15)
[2020-06-27] MEDS ORDERED: 0.9 % Sodium Chloride 1,000 ML IVC SCH (23:45)
[2020-06-28] MEDS: 0.9 % Sodium Chloride 1,000 ML IVC SCH ×2 (00:16→10:15)
[2020-06-28] MEDS: Piperacillin/Tazobactam 3.375 GM in 0.9 % Sodium Chloride Mini Bag 100 ML IVPB SCH ×2 (00:16→10:16)
[2020-06-28 02:16] LABS: Basophils % 0.2 %; Eosinophils # 0.1 K/mcL (0.0-0.6); Eosinophils % 1.7 %; Hematocrit 36.5 % (35.3-44.9); Hemoglobin 11.8 g/dL (11.5-15.4); Immature Granulocytes % 0.2 % (0-4); Lymphocytes % 16.2 %; Mean Corpuscular HGB Conc 32.3 g/dL (31.6-35.5); Mean Corpuscular Hemoglobin 31.1 pg (28.0-33.3); Mean Corpuscular Volume 96.1 fL (83.0-100.0); Mean Platelet Volume 10.8 fL (9.4-12.4); Monocytes # 0.7 K/mcL (0.0-1.3); Monocytes % 10.5 %; Neutrophils # 4.5 K/mcL (1.6-8.9); Platelet Count 181 K/mcL (140-400); Red Cell Distribution Width 12.3 % (11.5-14.5); Segmented Neutrophils % 71.2 %; White Blood Count 6.4 K/mcL (4.3-11.1)
[2020-06-28 02:31] LABS: INR 1.1; Prothrombin Time 12.9 Seconds (9.4-12.1)
[2020-06-28 02:32] LABS: Alanine Aminotransferase 8 Units/L (7-52); Albumin 3.6 g/dL (3.5-5.7); Albumin/Globulin Ratio 1.4 (1.1-2.2); Alkaline Phosphatase 71 Units/L (34-104); Aspartate Amino Transferase 14 Units/L (13-39); BUN/Creatinine Ratio 26 (6-26); Bilirubin,Total 0.4 mg/dL (0.3-1.0); Blood Urea Nitrogen 23 mg/dL (8-23); Calcium 8.6 mg/dL (8.6-10.3); Carbon Dioxide 30 mEq/L (23-29); Chloride 107 mEq/L (98-107); Globulin 2.5 g/dL (2.4-3.5); Glucose 115 mg/dL (70-105); Magnesium 1.8 mg/dL (1.6-2.6); Osmolality,Calculated 301 (280-300); Phosphorous 2.3 mg/dL (2.7-4.5); Sodium 143 mEq/L (136-145); Total Protein 6.1 g/dL (6.4-8.9); eGFR For African Americans > 60 (> 60); eGFR For Non-African Americans > 60 (> 60)
[2020-06-28] MEDS ORDERED: *HR* LORazepam 2 MG/ML VIAL IVP ONE (04:25)
[2020-06-28] MEDS ORDERED: Dextrose Gel 15 GM/37.5 ML TUBE PO PRN ×2 (07:39)
[2020-06-28] MEDS ORDERED: D5% in Water 1,000 ML IVC PRN (07:39)
[2020-06-28] MEDS ORDERED: *HR* Dextrose 50 % in Water (Vial) 50 ML VIAL IVP PRN (07:39)
[2020-06-28] MEDS: Insulin LISPRO 300 UNITS/3 ML VIAL SUBQ SCH ×2 (13:42→17:12)
[2020-06-28] MEDS ORDERED: Bismuth Subsalicylate 120 ML ORAL SUSPENSION PO PRN (14:56)
[2020-06-28] MEDS ORDERED: polyethylene glycoL 3350 17 GM POWD.PACK PO PRN (14:56)
[2020-06-28] MEDS ORDERED: Mag Hydrox/Al Hydrox/Simeth 30 ML UDC PO PRN (15:02)
[2020-06-28] MEDS: *HR* LORazepam 0.5 MG TABLET PO SCH ×2 (17:12→21:49)
[2020-06-28] MEDS: *HR* Heparin 5,000 UNIT/ML VIAL SQ SCH (17:12)
[2020-06-28] MEDS: Divalproex (24 HR) 500 MG TABLET PO SCH (21:49)
[2020-06-28] MEDS ORDERED: Haloperidol Lactate 5 MG/ML VIAL IVP ONE (23:56)
[2020-06-29 04:07] LABS: Basophils % 0.2 %; Eosinophils # 0.1 K/mcL (0.0-0.6); Eosinophils % 2.9 %; Hematocrit 32.2 % (35.3-44.9); Hemoglobin 10.1 g/dL (11.5-15.4); Immature Granulocytes % 0.4 % (0-4); Lymphocytes # 1.1 K/mcL (0.6-4.6); Lymphocytes % 23.7 %; Mean Corpuscular HGB Conc 31.4 g/dL (31.6-35.5); Mean Corpuscular Hemoglobin 30.1 pg (28.0-33.3); Mean Corpuscular Volume 95.8 fL (83.0-100.0); Mean Platelet Volume 10.8 fL (9.4-12.4); Monocytes # 0.6 K/mcL (0.0-1.3); Monocytes % 11.6 %; Neutrophils # 2.9 K/mcL (1.6-8.9); Platelet Count 152 K/mcL (140-400); Red Blood Count 3.36 M/mcL (3.82-4.97); Red Cell Distribution Width 12.4 % (11.5-14.5); Segmented Neutrophils % 61.2 %; White Blood Count 4.8 K/mcL (4.3-11.1)
[2020-06-29] MEDS ORDERED: Acetaminophen 325 MG TABLET PO ONE (04:12)
[2020-06-29] MEDS ORDERED: 0.9 % Sodium Chloride 500 ML IV ONE (04:15)
[2020-06-29 04:25] LABS: Magnesium 1.9 mg/dL (1.6-2.6); Phosphorous 2.1 mg/dL (2.7-4.5)
[2020-06-29] MEDS: *HR* Heparin 5,000 UNIT/ML VIAL SQ SCH ×2 (05:18→16:53)
[2020-06-29] MEDS: Loratadine 10 MG TABLET PO SCH (08:37)
[2020-06-29] MEDS: Divalproex (24 HR) 250 MG TABLET PO SCH (08:37)
[2020-06-29] MEDS: cefTRIAXone 1,000 MG in 0.9 % Sodium Chloride Mini Bag 100 ML IVPB SCH (09:24)
[2020-06-29] MEDS: *HR* LORazepam 0.5 MG TABLET PO SCH ×5 (09:24→20:26)
[2020-06-29] MEDS ORDERED: 0.9 % Sodium Chloride 500 ML IVC SCH (11:15)
[2020-06-29] MEDS ORDERED: 0.9 % Sodium Chloride 500 ML ONE (11:29)
[2020-06-29 12:59] LABS: ABG Base Excess 2 mEq/L (-2 to 3); ABG HCO3 27 mEq/L (21-27); ABG Oxygen Saturation 91 % (95-98); ABG PCO2 45 mmHg (35-45); ABG PH 7.39 pH Units (7.32-7.45); ABG PO2 63 mmHg (85-104); ABG TCO2 29 mEq/L (20-26)
[2020-06-29] MEDS ORDERED: Saline Nasal Spray 44 ML BOTTLE NS PRN (15:19)
[2020-06-29] MEDS: Divalproex (24 HR) 500 MG TABLET PO SCH (20:25)
[2020-06-30 03:55] LABS: Basophils % 0.6 %; Eosinophils # 0.2 K/mcL (0.0-0.6); Eosinophils % 6.3 %; Hematocrit 31.4 % (35.3-44.9); Immature Granulocytes % 0.3 % (0-4); Lymphocytes % 30.2 %; Mean Corpuscular HGB Conc 31.8 g/dL (31.6-35.5); Mean Corpuscular Hemoglobin 30.6 pg (28.0-33.3); Mean Platelet Volume 10.5 fL (9.4-12.4); Monocytes # 0.4 K/mcL (0.0-1.3); Monocytes % 11.3 %; Neutrophils # 1.6 K/mcL (1.6-8.9); Platelet Count 134 K/mcL (140-400); Red Blood Count 3.27 M/mcL (3.82-4.97); Red Cell Distribution Width 12.4 % (11.5-14.5); Segmented Neutrophils % 51.3 %; White Blood Count 3.2 K/mcL (4.3-11.1)
[2020-06-30 04:14] LABS: BUN/Creatinine Ratio 22 (6-26); Blood Urea Nitrogen 16 mg/dL (8-23); Calcium 8.7 mg/dL (8.6-10.3); Carbon Dioxide 26 mEq/L (23-29); Chloride 111 mEq/L (98-107); Glucose 113 mg/dL (70-105); Magnesium 1.9 mg/dL (1.6-2.6); Osmolality,Calculated 296 (280-300); Phosphorous 3.6 mg/dL (2.7-4.5); Potassium 4.2 mEq/L (3.5-5.1); Sodium 142 mEq/L (136-145); eGFR For African Americans > 60 (> 60); eGFR For Non-African Americans > 60 (> 60)
[2020-06-30] MEDS: *HR* Heparin 5,000 UNIT/ML VIAL SQ SCH (06:10)
[2020-06-30] MEDS ORDERED: Cholecalciferol (D-3) 1,000 UNIT (25MCG) TABLET PO SCH (09:00)
[2020-06-30] MEDS: Divalproex (24 HR) 250 MG TABLET PO SCH (09:58)
[2020-06-30] MEDS: *HR* LORazepam 0.5 MG TABLET PO SCH (09:58)
[2020-06-30] MEDS: Loratadine 10 MG TABLET PO SCH (09:59)
[2020-06-30] MEDS: cefTRIAXone 1,000 MG in 0.9 % Sodium Chloride Mini Bag 100 ML IVPB SCH (09:59)
[2020-06-30 11:52] VITALS: BP 130/71
== END 2020-06-30 14:24 | DRG 690 ==
LOC: EMEROOARM 14:51 → 3ANU 14:51 → SUATTDRO 19:31 → 3ANU 20:06
PROVIDERS: ADMIT Internal Medicine; ATTEND Internal Medicine